=== PATIENT | female | born 1950 | race Two or more races ===

== ENCOUNTER → 2022-05-06 | Outpatient (CLI) | payer OTHER, MEDICAID ==
[~2022-05-06] MED LIST: ALBUTEROL SULF 2.5 MG/0.5ML(0.5%) NEB SOLN ONE
== END | disposition home or self-care (01) ==
LOC: RT 08:49
PROVIDERS: ATTEND Internal Medicine Pulmonary Disease
DX: R06.02 Shortness of breath (principal); R06.00 Dyspnea, unspecified; R05.9 Cough, unspecified; Z87.891 Personal history of nicotine dependence
CPT/HCPCS: 94060; 94727; 94729

== ENCOUNTER 2024-12-06 21:51 | Inpatient (IN) | payer BC, MEDICAID ==
[~2024-12-06] VITALS: Ht 160 cm; Wt 97.0 kg
--- NOTE | 2024-12-06 22:39 | ED.PDOC ---
History of Present Illness HPI Comments 74 y/o obese F, with a history of CHF, DM, HLD, and HTN, is BIBA for c/o anxiety and medication refill-inquiry, today. Patient is a poor historian and endorses on calling EMS under advice of phone-health nurse for worsening anxiety surrounding her inability to obtain any refill for her prescription medications for the past couple of months. She comments on, initially, running out of said medications when she was discharge when plans for knee surgery fell through at a facility at [place], [place] in September 2024, with multiple reported failed attempts to contact her PCP since then to obtain a refill. Patient states on most recent fail attempt being a recent hospital admission at [facility] after being found with a "low heart rate" then. She reports on being discharged but never her medications forwarded to her preferred pharmacy. Patient denies any current shortness of breath, chest pain, suicidal or homicidal ideations, auditory or visual hallucinations, or other associated symptoms at this time. Chief Complaint: Anxiety Time Seen by MD: 22:20 Reviewed Notes: Nurses Notes, Railroad Car Checker Notes, Medications, Allergies Allergies: Coded Allergies: Codeine (Verified Allergy, Unknown, 12/06/24) Penicillins (Verified Allergy, Unknown, 12/06/24) Information Source: Patient, Emergency Med Personnel Mode of Arrival: EMS Severity: Moderate Timing: Hours Duration: Since onset Prehospital treatment: 12 Lead EKG, Cover Mat Machine Operator Past Medical History PAST MEDICAL HISTORY: CHF, DM, High Lipids, HTN Surgical History: Denies all surgeries EYELET CUTTER History: Denies all EYELET CUTTER Hx Family History Family History: Unknown Social History Smoker: Non-Smoker Alcohol: Denies ETOH Use Drugs: Denies Drug Use Lives In: Home All Other Systems: Reviewed and Negative (Comprehensive systems review obtained and negative except for what is stated in the HPI.) Physical Exam General Appearance: No Apparent Distress, Obese HEENT: Normal ENT Inspection, Pharynx Normal, TMs Normal Neck: Full Range of Motion, Non-Tender, Normal, Normal Inspection Respiratory: Chest Non-Tender, Lungs Clear, No Accessory Muscle Use, No Respiratory Distress, Normal Breath Sounds Cardiovascular: No Edema, No JVD, No Murmur, No Gallop, Normal Peripheral Pulses, Regular Rate/Rhythm Breast Exam: Deferred Gastrointestinal: No Organomegaly, Non Tender, No Pulsatile Mass, Normal Bowel Sounds, Soft Genitalia: Deferred Pelvic: Deferred Rectal: Deferred Extremities: No calf tenderness, Normal capillary refill, Normal inspection, Normal range of motion, Non-tender, No pedal edema Musculoskeletal : Apperance: Normal Neurologic: Alert, presales engineer II-XII nml as Tested, No Motor Deficits, Normal Affect, Normal Mood, No Sensory Deficits Cerebellar Function: Normal Reflexes: Normal Skin: Dry, Normal Color, Warm Lymphatic: No Adenopathy Was a procedure done? Was a procedure done?: No Differential Dx Considerations may include: anxiety, ACS, electrolyte abnormality, viral syndrome, medication reaction X-Ray, Labs, Meds, VS Vital Signs Date Time Temp Pulse Resp B/P (MAP) Pulse Ox O2 Delivery O2 Flow Rate FiO2 12/06/24 22:05 97.9 80 18 148/76 (100) 95 97.9 Lab Test 12/06/24 22:33 Range/Units White Blood Count 4.8 4.4-10.8 10^3/uL Red Blood Count 4.21 4.0-5.20 10^6/uL Hemoglobin 12.4 12.2-16.2 g/dL Hematocrit 37.3 36.0-46.0 % Mean Corpuscular Volume 88.7 80.0-100.0 fL Mean Corpuscular Hemoglobin 29.5 28.0-32.0 pg Mean Corpuscular Hemoglobin Concent 33.3 32.0-36.0 g/dL Red Cell Distribution Width 16.9 H 11.8-14.3 % Platelet Count 188 140-450 10^3/uL Mean Platelet Volume 7.7 6.9-10.8 fL Neutrophils (%) (Auto) 45.5 37.0-80.0 % Lymphocytes (%) (Auto) 43.3 10.0-50.0 % Monocytes (%) (Auto) 7.2 0.0-12.0 % Eosinophils (%) (Auto) 3.1 0.0-7.0 % Basophils (%) (Auto) 0.9 0.0-2.0 % Neutrophils # (Auto) 2.2 1.6-8.6 10 ^3/uL Lymphocytes # (Auto) 2.1 0.4-5.4 10 ^3/uL Monocytes # (Auto) 0.3 0-1.3 10 ^3/uL Eosinophils # (Auto) 0.1 0-0.8 10 ^3/uL Basophils # (Auto) 0 0-0.2 10 ^3/uL Nucleated Red Blood Cells 0.1 % Sodium Level 141 136-145 mmol/L Potassium Level 3.7 3.5-5.1 mmol/L Chloride Level 107 98-107 mmol/L Carbon Dioxide Level 26 20-31 mmol/L Anion Gap 8 5-15 Blood Urea Nitrogen 15 9-23 mg/dL Creatinine 1.06 H 0.550-1.02 mg/dL Glomerular Filtration Rate Calc 55 >90 mL/min BUN/Creatinine Ratio 14.2 10.0-20.0 Serum Glucose 145 H 74-106 mg/dL Calcium Level 9.8 8.7-10.4 mg/dL Troponin I High Sensitivity 122 *H </=34 ng/L Time of 1ST Reevaluation: 22:50 Reevaluation 1ST: Unchanged Patient Education/Counseling: Diagnosis, Treatment Family Education/Counseling: No Family Present Departure 1 Departure Time of Disposition: 04:38 (Patient with a vague complaints and elevated troponin. Patient is noncompliant with any of her medications. Blood pressure is out of control. We will admit patient for further workup and expert consultation) Impression: Primary Impression: Generalized weakness Additional Impressions: Hypertension Qualified Codes: I10 - Essential (primary) hypertension Elevated troponin Disposition: ADMITTED INPATIENT Admit to: Med Surg Condition: Serious Critical Care Note Critical Care Time?: No Stability Stability form required: No Heart Score Heart Score: Heart Score Response (Comments) Value History Slightly Suspicious 0 EKG Normal 0 Age >65 2 Risk Factors >3 or Hx ASHD 2 Troponin >3 x's Normal limit 2 Total 6 I personally scribed for FELA VANCE MD ([email or web address]) on 12/06/24 at 22:39. Electronically submitted by Akhil Mcdaniel ([email or web address]). FELA VANCE MD Dec 06, 2024 22:39
[2024-12-06 22:44] LABS: Basophils # (auto) 0 10 ^3/uL (0-0.2); Basophils % (auto) 0.9 % (0.0-2.0); Eosinophils # (auto) 0.1 10 ^3/uL (0-0.8); Eosinophils % (auto) 3.1 % (0.0-7.0); Hematocrit 37.3 % (36.0-46.0); Hemoglobin 12.4 g/dL (12.2-16.2); Lymphocytes # (auto) 2.1 10 ^3/uL (0.4-5.4); Lymphocytes % (auto) 43.3 % (10.0-50.0); Mean Corpuscular Hemoglobin 29.5 pg (28.0-32.0); Mean Corpuscular Hgb Conc. 33.3 g/dL (32.0-36.0); Mean Corpuscular Volume 88.7 fL (80.0-100.0); Monocytes # (auto) 0.3 10 ^3/uL (0-1.3); Monocytes % (auto) 7.2 % (0.0-12.0); Neutrophils # (auto) 2.2 10 ^3/uL (1.6-8.6); Neutrophils % (auto) 45.5 % (37.0-80.0); Nucleated Red Blood Cells % 0.1 %; Platelet Count (auto) 188 10^3/uL (140-450); Red Blood Cells 4.21 10^6/uL (4.0-5.20); Red Cell Distribution Width 16.9 % (11.8-14.3); White Blood Cell 4.8 10^3/uL (4.4-10.8)
[2024-12-06 22:53] LABS: Potassium 3.7 mmol/L (3.5-5.1); Sodium 141 mmol/L (136-145)
[2024-12-06 22:54] LABS: Anion Gap 8 (5-15); Calcium 9.8 mg/dL (8.7-10.4); Carbon Dioxide 26 mmol/L (20-31)
[2024-12-06 22:59] LABS: BUN/Creatinine Ratio 14.2 (10.0-20.0); Blood Urea Nitrogen 15 mg/dL (9-23)
[2024-12-06 23:00] LABS: Chloride 107 mmol/L (98-107); Glucose 145 mg/dL (74-106)
[2024-12-07] MEDS ORDERED: DEXTROSE (50%) 50ML SYRG IV PRN (05:00)
[2024-12-07] MEDS ORDERED: MORPHINE SULFATE INJ 2 MG/ml SYRG IV PRN (05:00)
[2024-12-07] MEDS ORDERED: NITROGLYCERIN 0.4 MG SL TAB SL PRN (05:00)
[2024-12-07] MEDS ORDERED: ONDANSETRON HCL 4 MG/2 ML VIAL IV PRN (05:00)
--- NOTE | 2024-12-07 05:09 | DVHHP2 ---
History of Present Illness Reason for Visit: Medication refill History of Present Illness 74-year-old female presents for evaluation of generalized weakness and for medication refill. Patient initially presented with complaints of being out of her medications for over a month. She states she has not been able to get an refilled by her primary care provider. She reports generalized weakness and occasional dizziness. On arrival patient was noted to have a mildly elevated troponin level and blood pressure in the 190s. She denies headache or blurred vision. No chest pain or shortness for breath. Denies any other acute complaints at the moment. Past Medical History Hypertension, dyslipidemia, thyroid, CHF Past Surgical History Denies Family History Noncontributory Smoke: No ALCOHOL: none Drugs: None Lives: with Family Review of Systems Review of Systems Review of systems are currently negative otherwise addressed in HPI. Allergies: Coded Allergies: Codeine (Verified Allergy, Unknown, 12/06/24) Penicillins (Verified Allergy, Unknown, 12/06/24) Exam Vital Signs Vital Signs Date Time Temp Pulse Resp B/P (MAP) Pulse Ox O2 Delivery O2 Flow Rate FiO2 12/07/24 04:46 98.1 61 12 189/125 (146) 97 98.1 Exam Gen: 74-year-old female in no apparent distress. Skin: Warm, dry, normal color and texture, no rash. HEENT: Normocephalic atraumatic, mucous membranes moist and pink. Neck: Cervical and supraclavicular nodes normal without enlargement, trachea is midline, thyroid gland is normal without masses. Pulmonary: Clear to auscultation and percussion bilaterally. Cardiac: Regular rate and rhythm. No murmur Abdomen: Soft, nontender, nondistended, bowel sounds present all 4 quadrants, no guarding, no rigidity, no organomegaly. Extremities: No cyanosis, clubbing, no edema Neuro: Cranial nerves II through XII grossly intact, normal affect and speech, no focal motor deficits. Labs/Xrays Labs Test 12/06/24 22:33 Range/Units White Blood Count 4.8 4.4-10.8 10^3/uL Red Blood Count 4.21 4.0-5.20 10^6/uL Hemoglobin 12.4 12.2-16.2 g/dL Hematocrit 37.3 36.0-46.0 % Mean Corpuscular Volume 88.7 80.0-100.0 fL Mean Corpuscular Hemoglobin 29.5 28.0-32.0 pg Mean Corpuscular Hemoglobin Concent 33.3 32.0-36.0 g/dL Red Cell Distribution Width 16.9 H 11.8-14.3 % Platelet Count 188 140-450 10^3/uL Mean Platelet Volume 7.7 6.9-10.8 fL Neutrophils (%) (Auto) 45.5 37.0-80.0 % Lymphocytes (%) (Auto) 43.3 10.0-50.0 % Monocytes (%) (Auto) 7.2 0.0-12.0 % Eosinophils (%) (Auto) 3.1 0.0-7.0 % Basophils (%) (Auto) 0.9 0.0-2.0 % Neutrophils # (Auto) 2.2 1.6-8.6 10 ^3/uL Lymphocytes # (Auto) 2.1 0.4-5.4 10 ^3/uL Monocytes # (Auto) 0.3 0-1.3 10 ^3/uL Eosinophils # (Auto) 0.1 0-0.8 10 ^3/uL Basophils # (Auto) 0 0-0.2 10 ^3/uL Nucleated Red Blood Cells 0.1 % Sodium Level 141 136-145 mmol/L Potassium Level 3.7 3.5-5.1 mmol/L Chloride Level 107 98-107 mmol/L Carbon Dioxide Level 26 20-31 mmol/L Anion Gap 8 5-15 Blood Urea Nitrogen 15 9-23 mg/dL Creatinine 1.06 H 0.550-1.02 mg/dL Glomerular Filtration Rate Calc 55 >90 mL/min BUN/Creatinine Ratio 14.2 10.0-20.0 Serum Glucose 145 H 74-106 mg/dL Calcium Level 9.8 8.7-10.4 mg/dL Troponin I High Sensitivity 122 *H </=34 ng/L Assessment/Plan Assessment/Plan Assessment Accelerated hypertension Elevated troponin, demand ischemia Diabetes mellitus Hypothyroid Plan Admit the patient to telemetry to the hospitalist Resume home medications Echocardiogram pending Continue treatment per orders. Plan discussed with: Patient My Orders Orders - LAMIN ANNE AGACNP Procedure Category Date Status Time Troponin-I Hs LAB 12/07/24 Logged 04:49 Troponin-I Hs LAB 12/07/24 Logged 05:49 Date of Service: Dec 07, 2024 Billing Provider: LAMIN ANNE Common Visit Codes: [id number] INP/OBS CARE (HIGH) LAMIN ANNE Dec 07, 2024 05:09
[2024-12-07 05:17] LABS: Urine Bacteria None Seen /hpf (None Seen)
--- NOTE | 2024-12-07 05:27 | DVH ---
EXAM: XR Chest, 1 View CLINICAL INDICATION: sob TECHNIQUE: Frontal view of the chest. COMPARISON: None FINDINGS: LUNGS AND PLEURAL SPACES: See below. HEART: Cardiomegaly with mild congestion. MEDIASTINUM: Unremarkable. Normal mediastinal contour. BONES/JOINTS: Unremarkable. No acute fracture. OTHER FINDINGS: . IMPRESSION: Cardiomegaly with mild congestion.
[2024-12-07 06:00] VITALS: PULSE 44; RESP 16; O2SAT 91
[2024-12-07] MEDS: LEVOTHYROXINE SODIUM 50 MCG TAB PO SCH (06:10)
[2024-12-07 06:35] LABS: Urine Blood 1+ /uL (Negative); Urine Clarity Clear (Clear); Urine Color Light-Yellow (Yellow); Urine Protein, UAD 1+ (Negative); Urine Squamous Epithelial Cell FEW /hpf (<5); Urine Urobilinogen Normal (Negative); Urine WBC < 1 /HPF (0-5); Urine pH 6.5 (5.0-9.0)
[2024-12-07] MEDS: InsuLIN REG 1unit/0.01ml Soln (100units/ml) SC SCH (06:42)
[2024-12-07] MEDS: ACCU-CHEK COMFORT CURVE STRIP VI SCH (06:42)
[2024-12-07 08:00] VITALS: PULSE 61; RESP 12; O2SAT 98
[2024-12-07] MEDS: ASPirin 81 mg TAB PO SCH (10:00)
[2024-12-07] MEDS: ENOXAPARIN SOD 40 MG/0.4 ML SYRINGE SC SCH (10:56)
[2024-12-07] MEDS: LOSARTAN POTASSIUM 50 MG TAB PO SCH (10:57)
[2024-12-07 16:19] VITALS: PULSE 69; RESP 18; O2SAT 97
[2024-12-07] MEDS ORDERED: FOLI-119 PO (16:48)
[2024-12-07 17:11] VITALS: BP 157/66; PULSE 69; RESP 18; TEMP 97.9; O2SAT 97
--- NOTE | 2024-12-07 18:18 | DVHSR ---
APPROVED REPORT EXAM: LIMITED Two-dimensional and M-mode echocardiogram with Doppler and color Doppler. Blood Pressure: 143/69 mmHg INDICATION EF RISK FACTORS Height: 5' 3", Weight: 190 DIMENSIONS LVDd4.5 (3.8-5.7cm)LA (2D)3.5 (1.9-4.0cm)Aortic Root3.8 (2.0-3.7cm) LVDs3.2 (2.5-4.0cm)LA (MM) (1.9-4.0cm)Aortic Cusp Exc1.5 (1.5-2.0cm) EF (%) 55.0 (55-70%)Rt. Atrium (1.9-4.0cm)Asc. Aorta cm IVSd1.3 (0.7-1.1cm)RV (D) (1.8-2.4cm) PWd1.4 (0.7-1.1cm) Mitral Valve MitralMitral Stenosis E wave0.60m/sMV Mean GR.mmHg A wave0.90m/sMV Peak GR.mmHg E/A ratio0.72D MVAcm2 Aortic Valve Aortic ValveAortic Stenosis V10.70m/Jessa Mean GR.4mmHg V21.40m/Jessa Peak GR.8mmHg LVOT Diameter2.3 (1.8-2.4cm)Doppler AVA2.08cm2 AI P 1/2 [id number] Other Information Quality : Technically LimitedRhythm : Technically limited study due to body habitus and patient position. Conclusion Technically good study. Sinus rhythm. Concentric LVH. Moderate hypertrophy noted. Left atrial enlargement. Mild aortic root enlargement. Voff-et-jxsrkxjw mitral annular calcification. Mild aortic sclerosis. Good excursion of the leaflet s without stenosis. Left ventricular function appears preserved. EF of about 50% however there does appear to be impaire d diastolic relaxation/diastolic dysfunction. There is mild aortic insufficiency and moderate tricuspid regurgitation. No pericardial effusion masses or vegetations discernible.
[2024-12-07 20:00] VITALS: PULSE 56; PULSE 83; RESP 19; O2SAT 96
--- NOTE | 2024-12-07 20:13 | DVHINCON2 ---
Date Seen: Dec 07, 2024 Referring Physician MD Forrest Reason for Consultation Bradycardia History of Present Illness This is a 74-year-old female who presented to the emergency room via EMS with a chief complaint of generalized weakness for one week. The patient complains of worsening generalized weakness stating she was found with a heart rate in the 30s bpm upon EMS arrival. Referral to the emergency room she underwent a 12 lead electrocardiogram revealing a sinus bradycardia rhythm with a associated first-degree AV block and nonspecific lateral changes with a HR of 44 bpm. Denies chest pain, SOB, dizziness, or syncopal events. Reports a recent admission to [facility] and no further information. Follows up in the outpatient setting with primary metal grinder Dr. Ramirez. Significant medical history includes unspecified congestive heart failure, hypertension, dyslipidemia, insulin-dependent diabetes mellitus, thyroid disease, peripheral neuropathy, and obesity. Past Medical History Past medical history reviewed. No other significant than mentioned above. Past Surgical History Tonsillectomy Nasal bridge Appendectomy BTL Hysterectomy Right carpal tunnel Spine/lumbar Right shoulder Family History: Cardiovascular disease G8 FATHER, Diabetes mellitus G8 MOTHER, Hypertension G8 MOTHER, Family History Family history reviewed. Not significant for cardiovascular disease. Social History Denies the use of illicit drugs, alcohol, or tobacco use. Allergies: Coded Allergies: Codeine (Verified Allergy, Unknown, 12/06/24) Penicillins (Verified Allergy, Unknown, 12/06/24) Home Meds Reported Medications Folic Acid (Folic Acid) 1 Mg Tab, 1 TAB PO DAILY 12/07/24 Home Meds Home medications reviewed. Current Medications Current Medications Medications (Trade) Dose Ordered Sig/Haile Route PRN Reason Start Time Stop Time Status Last Admin Losartan Potassium (Cozaar Tablet) 50 mg DAILY PO 12/07/24 10:00 12/07/24 10:57 Levothyroxine Sodium (Synthroid Tablet) 50 mcg QAM@0600 PO 12/07/24 06:00 12/07/24 06:10 Hydralazine HCl (Apresoline Injection) 10 mg Q6HP PRN IV SBP>150 12/07/24 05:00 Aspirin 162 mg DAILY PO 12/07/24 10:00 12/07/24 10:00 Atorvastatin Calcium (Lipitor) 10 mg HS PO 12/07/24 22:00 Diagnostic Test (Pha) (Accu-Chek Comfort Curve T) 1 strip ACHS 12/07/24 07:00 12/07/24 17:36 Insulin Human Regular (InsuLIN R) ACHS SC 12/07/24 07:00 12/07/24 18:19 Dextrose 50 ml UD PRN IV Blood Sugar LESS THAN 60 12/07/24 05:00 Ondansetron HCl (Zofran) 4 mg Q4HP PRN IV NAUSEA / VOMITING 12/07/24 05:00 Enoxaparin Sodium (Lovenox) 40 mg DAILY SC 12/07/24 10:00 12/07/24 10:56 Acetaminophen (Tylenol Tablet) 650 mg Q6HP PRN PO PAIN SCALE 1-3 OR TEMP>100.4 12/07/24 05:00 Nitroglycerin (Ntrostat Sublingual) 0.4 mg Q5MINP PRN SL FOR CHEST PAIN 12/07/24 05:00 Morphine Sulfate 2 mg Q30M PRN IV FOR CHEST PAIN 12/07/24 05:00 Review of Systems Constitutional: Generalized weakness Ears, Nose, & Throat: No symptom reported Eyes: No symptom reported Neurological: No symptoms reported Pulmonary/Respiratory: No symptom reported Cardiovascular: No symptom reported Gastrointestinal: No symptom reported Genitourinary: No symptom reported Musculoskeletal: No symptom reported Skin: No symptom reported Psychiatric: No symptom reported Endocrine: No symptom reported Hemotologic/Lymphatic: No symptom reported Vital Signs Vital Signs Date Time Temp Pulse Resp B/P (MAP) Pulse Ox O2 Delivery O2 Flow Rate FiO2 12/07/24 17:11 97.9 69 18 157/66 (96) 97 97.9 12/07/24 16:19 Room Air* 0 21 Physical Exam General Appearance: Cooperative. Well developed. Obese. In no acute distress Head Exam: Normal inspection Neck Exam: Normal inspection. Non-tender. Normal alignment Pulmonary/Respiratory: Chest non-tender. Slightly diminished bilateral breath sounds Cardiovascular/Chest: Regular rate and rhythm. S1, S2. NSR. No murmurs. No JVD. Peripheral Pulses: 2+ Radial (R). 2+ Radial (L). 2+ Pedal (R). 2+ Pedal (L) Abdominal Exam: Normal bowel sounds. Soft. Nontender. No hepatospenomegaly. No masses Ankle Exam: Negative ankle edema Lower extremities: Negative lower extremity edema Neuro/Mental Status: A&O x4. Coherent Thoughts/Psych: Normal thought pattern. Appropriate mood and affect. Good judgement and insight Appearance: In no acute distress Skin Exam: Normal inspection. Normal color. Warm. Dry Labs/Diagnostic Data Labs Test 12/07/24 16:48 12/07/24 07:46 12/07/24 05:39 12/07/24 05:13 Range/Units POC Glucose 149 H 70-106 mg/dl Troponin I High Sensitivity 112 *H </=34 ng/L Total Triiodothyronine (TT3) 0.75 0.60-1.81 ng/mL Hemoglobin A1c 8.7 H <5.7 % A1C Thyroid Stimulating Hormone (TSH) > 150.00 H 0.55-4.78 uIU/mL Urine Color Light-yellow Yellow Urine Clarity Clear Clear Urine pH 6.5 5.0-9.0 Urine Specific [place] 1.020 1.001-1.035 Urine Protein 1+ H Negative Urine Ketones Negative Negative Urine Blood 1+ H Negative /uL Urine Nitrite Negative Negative Urine Bilirubin Negative Negative Urine Urobilinogen Normal Negative mg/dL Urine Leukocyte Esterase Negative Negative /uL Urine RBC None seen 0 - 4 /hpf Urine Microscopic WBC < 1 0-5 /HPF Urine Squamous Epithelial Cells Few <5 /hpf Urine Bacteria None seen None Seen /hpf Urine Glucose Normal Normal mg/dL Test 12/06/24 22:33 Range/Units White Blood Count 4.8 4.4-10.8 10^3/uL Red Blood Count 4.21 4.0-5.20 10^6/uL Hemoglobin 12.4 12.2-16.2 g/dL Hematocrit 37.3 36.0-46.0 % Mean Corpuscular Volume 88.7 80.0-100.0 fL Mean Corpuscular Hemoglobin 29.5 28.0-32.0 pg Mean Corpuscular Hemoglobin Concent 33.3 32.0-36.0 g/dL Red Cell Distribution Width 16.9 H 11.8-14.3 % Platelet Count 188 140-450 10^3/uL Mean Platelet Volume 7.7 6.9-10.8 fL Neutrophils (%) (Auto) 45.5 37.0-80.0 % Lymphocytes (%) (Auto) 43.3 10.0-50.0 % Monocytes (%) (Auto) 7.2 0.0-12.0 % Eosinophils (%) (Auto) 3.1 0.0-7.0 % Basophils (%) (Auto) 0.9 0.0-2.0 % Neutrophils # (Auto) 2.2 1.6-8.6 10 ^3/uL Lymphocytes # (Auto) 2.1 0.4-5.4 10 ^3/uL Monocytes # (Auto) 0.3 0-1.3 10 ^3/uL Eosinophils # (Auto) 0.1 0-0.8 10 ^3/uL Basophils # (Auto) 0 0-0.2 10 ^3/uL Nucleated Red Blood Cells 0.1 % Sodium Level 141 136-145 mmol/L Potassium Level 3.7 3.5-5.1 mmol/L Chloride Level 107 98-107 mmol/L Carbon Dioxide Level 26 20-31 mmol/L Anion Gap 8 5-15 Blood Urea Nitrogen 15 9-23 mg/dL Creatinine 1.06 H 0.550-1.02 mg/dL Glomerular Filtration Rate Calc 55 >90 mL/min BUN/Creatinine Ratio 14.2 10.0-20.0 Serum Glucose 145 H 74-106 mg/dL Calcium Level 9.8 8.7-10.4 mg/dL Assessment Symptomatic bradycardia in the setting of severe hypothyroidism Acute on chronic decompensated HFpEF Rule out pituitary tumor Hypertension Dyslipidemia Insulin-dependent diabetes mellitus Peripheral neuropathy Obesity Plan/Recommendation (Dr. Monroe) Symptomatic bradycardia most likely secondary to severe hypothyroidism. Initiate levothyroxine IV and obtain a head CT with contrast to rule out a pituitary tumor. Consider a neurological evaluation with abnormal head CT findings. A transthoracic echocardiogram revealed an EF of 50% with associated impaired diastolic relaxation/dysfunction. Avoid AV pina blocking agents. Thyroid work-up per primary care team. In the setting of bradycardia improv ement once TSH levels have normalized, there is no further cardiac work-up indicated. Not a candidate for invasive cardiac procedures including a permanent pacemaker. Kindly call if bradycardia persists. Thank you for allowing us to participate in this patient's care. Please call if you have any questions or concerns. This medical document was created using an electronic medical record system with voice recognition software and computerized dictation system. Although this document has been carefully reviewed, there might still be some phonetic and typographical errors. Occasional wrong-word or ``sound-alike substitutions may have occurred due to the inherent limitations of voice recognition software. These areas are purely typographical due to imperfections of the software programs and do not reflect any compromise in the patient's medical care. Please read the chart carefully and recognize, using context, where these substitutions have occurred. Plan discussed with: Patient, Other NYHA Physical activity limitations: NA Date of Service: Dec 08, 2024 Billing Provider: JOSE R BAZZI Cardiology Common Codes: [id number] INP/OBS CARE (High) JOSE R BAZZI Dec 07, 2024 20:13
[2024-12-07 21:00] VITALS: BP 121/69; PULSE 56; RESP 19; TEMP 97.8; O2SAT 96
[2024-12-07] MEDS: ATORVASTATIN 20 MG TAB PO SCH (21:45)
[2024-12-07] MEDS: ACETAMINOPHEN 325 MG TAB PO PRN (21:47)
[2024-12-08] VITALS (8 sets, daily range): BP systolic 110–153; BP diastolic 76–84; PULSE 46–99; RESP 17–20; TEMP 97.8–98.6; O2SAT 94–97
[2024-12-08 06:04] LABS: Anion Gap 8 (5-15); Carbon Dioxide 28 mmol/L (20-31); Chloride 105 mmol/L (98-107); Potassium 3.8 mmol/L (3.5-5.1); Sodium 141 mmol/L (136-145)
[2024-12-08 06:05] LABS: Calcium 9.5 mg/dL (8.7-10.4)
[2024-12-08 06:10] LABS: BUN/Creatinine Ratio 13.9 (10.0-20.0); Blood Urea Nitrogen 14 mg/dL (9-23)
[2024-12-08 06:17] LABS: Glucose 117 mg/dL (74-106)
[2024-12-08] MEDS: hydrALAZINE HCL 20 MG/ML VL IV PRN (08:51)
[2024-12-08] MEDS: LEVOTHYROXINE SODIUM 100 MCG/5 ML INJ IV SCH (10:22)
[2024-12-08] MEDS: FUROSEMIDE 20 MG/2 ML VIAL IV SCH (12:01)
[2024-12-08] MEDS ORDERED: IOHEXOL 300 MG/ML 100ML BOTTLE IJ ONE (12:18)
--- NOTE | 2024-12-08 13:47 | DVH ---
CT HEAD WITH CONTRAST CLINICAL HISTORY: Rule out pituitary tumor TECHNIQUE: Multiple contiguous axial images of the head with and without contrast. Coronal and sagittal reforma ts. 100 cc of Omnipaque omnipaque 350 contrast was injected intravenously.Radiation Dose Information: CT Dose: CTDI volume is 54 mGy. Dose-length product is 874 mGy*cm Comparison: None FINDINGS: Evaluation for pituitary lesion is limited on CT. The pituitary gland is not enlarged. There is a mi dline pituitary stalk. There is no evidence of a suprasellar lesion. There is no evidence of intracranial hemorrhage, mass, mass effect or midline shift. There is no hyd rocephalus or extra-axial fluid collection. There is no pathologic focus of enhancement. The urbina-wh ite matter differentiation appears maintained. The visualized paranasal sinuses and mastoid air cells are clear. The osseous structures appear unrem arkable. IMPRESSION: 1. There is no acute intracranial process. 2. Evaluation for pituitary lesion is limited on CT. Further evaluation with dedicated MRI brain and pituitary study with contrast is recommended. HS:Y
[2024-12-08] MEDS ORDERED: GABA-339 PO (14:38)
--- NOTE | 2024-12-08 14:46 | ECG ---
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
[2024-12-08] MEDS: GABAPENTIN 400 MG CAP PO ONE (15:48)
[2024-12-08] MEDS: ALPRAZolam 0.5 MG TAB PO PRN (15:49)
--- NOTE | 2024-12-08 16:01 | DVHPN2 ---
Subjective I am assuming the care of the patient was from today onwards who was under the care of the hospitalist team. Patient was currently complaining of severe anxiety. 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 Medications Current Medications Medications Dose Ordered Sig/Haile Route Start Time Stop Time Status Last Admin Dose Admin Losartan Potassium 50 mg DAILY PO 12/07/24 10:00 12/08/24 10:22 50 MG Hydralazine HCl 10 mg Q6HP PRN IV 12/07/24 05:00 12/08/24 08:51 10 MG Aspirin 162 mg DAILY PO 12/07/24 10:00 12/08/24 10:21 162 MG Atorvastatin Calcium 10 mg HS PO 12/07/24 22:00 12/07/24 21:45 10 MG Diagnostic Test (Pha) 1 strip ACHS 12/07/24 07:00 12/08/24 11:30 1 STRIP Insulin Human Regular ACHS SC 12/07/24 07:00 12/08/24 12:58 3 UNITS Dextrose 50 ml UD PRN IV 12/07/24 05:00 Ondansetron HCl 4 mg Q4HP PRN IV 12/07/24 05:00 Enoxaparin Sodium 40 mg DAILY SC 12/07/24 10:00 12/08/24 10:22 40 MG Acetaminophen 650 mg Q6HP PRN PO 12/07/24 05:00 12/07/24 21:47 650 MG Nitroglycerin 0.4 mg Q5MINP PRN SL 12/07/24 05:00 Morphine Sulfate 2 mg Q30M PRN IV 12/07/24 05:00 Levothyroxine Sodium 100 mcg DAILY IV 12/08/24 10:00 12/08/24 10:22 100 MCG Furosemide 20 mg DAILY IV 12/08/24 10:00 12/08/24 12:01 20 MG Gabapentin 800 mg TID PO 12/08/24 22:00 Alprazolam 0.5 mg BID PRN PO 12/08/24 14:45 12/08/24 15:49 0.5 MG Hydroxyzine HCl 10 mg Q6HP PRN PO 12/08/24 16:00 UNV Laboratory Results Laboratory Tests 12/06/24 22:33 12/08/24 05:00 Chemistry Test 12/08/24 05:00 Calcium Level 9.5 mg/dL (8.7-10.4) Urinalysis Test 12/07/24 05:13 Urine Color Light-yellow (Yellow) Urine Clarity Clear (Clear) Urine pH 6.5 (5.0-9.0) Urine Specific [place] 1.020 (1.001-1.035) Urine Protein 1+ (Negative) H Urine Ketones Negative (Negative) Urine Blood 1+ /uL (Negative) H Urine Nitrite Negative (Negative) Urine Bilirubin Negative (Negative) Urine Urobilinogen Normal mg/dL (Negative) Urine Leukocyte Esterase Negative /uL (Negative) Urine RBC None seen /hpf (0 - 4) Urine Microscopic WBC < 1 /HPF (0-5) Urine Squamous Epithelial Cells Few /hpf (<5) Urine Bacteria None seen /hpf (None Seen) Urine Glucose Normal mg/dL (Normal) Microbiology Microbiology Date/Time Source Procedure Growth Status 12/07/24 17:25 Nose MRSA Screen - Final Complete Assessment/Plan Assessment/Plan 74-year-old female with a known history of hypertension, diabetes mellitus type 2, severe anxiety disorder initially presented to the hospital with generalized weakness found to have 1. Symptomatic bradycardia 2. Severe hypothyroidism 3. Acute on chronic congestive heart failure exacerbation with systolic dysfunction 4. Hypotension 5. Dyslipidemia 6. Diabetes mellitus type [address] head with the pituitary stalk, MRI brain ordered 8. Severe anxiety disorder -patient was stated that she takes hydroxyzine for severe anxiety at home. Order MRI brain-, neurology consultation Continue IV levothyroxine, follow up repeat TSH free T4. -endocrinology consultation. Plan discussed with: Patient My Orders Orders - ROBIN WADE MD Procedure Category Date Status Time Gabapentin Capsule PHA 12/08/24 In Process (Neurontin Capsule) 22:00 Alprazolam Tablet PHA 12/08/24 In Process (Xanax Tablet) 14:45 Thyroid Stimulating LAB 12/09/24 Verified Hormone 04:00 Free T3 LAB 12/09/24 Verified 04:00 Free T4 (Free LAB 12/09/24 Verified Thyroxine) 04:00 Hydroxyzine Oral PHA 12/08/24 Logged (Vistaril Oral) 16:00 Brain Head Wo Contrast MRI 12/08/24 Logged 15:52 * Neurology Consult CONS 12/08/24 Verified 15:57 Date of Service: Dec 08, 2024 Billing Provider: ROBIN WADE MD Common Visit Codes: NOT BILLABLE ROBIN WADE MD Dec 08, 2024 16:01
[2024-12-08] MEDS: GABAPENTIN 400 MG CAP PO SCH (21:31)
[2024-12-09] VITALS (8 sets, daily range): BP systolic 94–140; BP diastolic 59–82; PULSE 60–99; RESP 16–20; TEMP 97.9–99; O2SAT 92–98
[2024-12-09 06:38] LABS: Free T3 1.48 pg/mL (2.3-4.2)
[2024-12-09 06:39] LABS: Free T4 (Free Thyroxine) 0.71 ng/dL (0.89-1.76)
--- NOTE | 2024-12-09 09:30 | DVH ---
EXAM: MRI BRAIN HEAD WO CONTRAST HISTORY: Pituitary stalk COMPARISON: CT scan dated 12/08/2024 TECHNIQUE: MRI was performed utilizing multiple appropriate imaging planes and pulse sequences. FINDINGS: SUPRATENTORIAL REGION: Scattered subcentimeter foci of acute ischemia noted in the bilateral frontop arietal lobes. No large acute territorial ischemia. No intracranial hemorrhage. Scattered ill-define d FLAIR hyperintensities are noted within the bilateral periventricular region, croft radiata and [place] bcortical white matter. POSTERIOR FOSSA: Subcentimeter focus of acute ischemia in the right side of the vermis. BRAINSTEM: Unremarkable. SELLAR/SUPRASELLAR REGION: Unremarkable. VENTRICLES, CISTERNS, SULCI: Age-appropriate. ORBITS: Unremarkable. PARANASAL SINUSES: Unremarkable. MASTOID AIR CELLS: Unremarkable. VASCULATURE: Unremarkable. BONES/ SOFT TISSUES: Unremarkable. OTHER: None. IMPRESSION: 1. Scattered subcentimeter foci of acute ischemia in the bilateral frontoparietal lobes and in the ri ght side of the vermis reflecting shower emboli from a central port source. Recommend further evalua tion with carotid Doppler, CT or MR angiogram of the head and neck and echocardiogram. 2. Moderate chronic microvascular ischemic changes. 3. The pituitary gland pituitary stalk are normal in morphology with no discrete lesion identified in this unenhanced study. Further evaluation for possible micro adenoma by dedicated dynamic pituitary MRI without and with IV contrast could be completed if clinically warranted. Findings discussed with MIREYA Love at 12/09/2024 09:23 AM, and acknowledged receipt and understanding of the findings. ..
--- NOTE | 2024-12-09 16:14 | DVHPN2 ---
Subjective Patient is feeling much better, MRI was done which shows evidence of subcentimeter embolic infarcts in the frontoparietal lobes as well as murmurs. MRA head and neck has been ordered, aspirin Plavix and statin has been started and Neurology has been consulted. 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 Medications Current Medications Medications Dose Ordered Sig/Haile Route Start Time Stop Time Status Last Admin Dose Admin Losartan Potassium 50 mg DAILY PO 12/07/24 10:00 12/09/24 09:51 50 MG Hydralazine HCl 10 mg Q6HP PRN IV 12/07/24 05:00 12/08/24 08:51 10 MG Aspirin 162 mg DAILY PO 12/07/24 10:00 12/09/24 09:50 162 MG Diagnostic Test (Pha) 1 strip ACHS 12/07/24 07:00 12/09/24 11:34 1 STRIP Insulin Human Regular ACHS SC 12/07/24 07:00 12/09/24 11:34 3 UNITS Dextrose 50 ml UD PRN IV 12/07/24 05:00 Ondansetron HCl 4 mg Q4HP PRN IV 12/07/24 05:00 Acetaminophen 650 mg Q6HP PRN PO 12/07/24 05:00 12/07/24 21:47 650 MG Nitroglycerin 0.4 mg Q5MINP PRN SL 12/07/24 05:00 Morphine Sulfate 2 mg Q30M PRN IV 12/07/24 05:00 Levothyroxine Sodium 100 mcg DAILY IV 12/08/24 10:00 12/09/24 09:49 100 MCG Furosemide 20 mg DAILY IV 12/08/24 10:00 12/09/24 09:49 20 MG Gabapentin 800 mg TID PO 12/08/24 22:00 12/09/24 13:55 800 MG Alprazolam 0.5 mg BID PRN PO 12/08/24 14:45 12/08/24 15:49 0.5 MG Hydroxyzine HCl 10 mg Q6HP PRN PO 12/08/24 16:00 Atorvastatin Calcium 40 mg HS PO 12/09/24 22:00 UNV Clopidogrel Bisulfate 75 mg DAILY PO 12/09/24 16:15 UNV Laboratory Results Laboratory Tests 12/06/24 22:33 12/08/24 05:00 HgA1c, TSH Test 12/09/24 05:11 Thyroid Stimulating Hormone (TSH) > 150.00 uIU/mL Urinalysis Test 12/07/24 05:13 Urine Color Light-yellow (Yellow) Urine Clarity Clear (Clear) Urine pH 6.5 (5.0-9.0) Urine Specific [place] 1.020 (1.001-1.035) Urine Protein 1+ (Negative) H Urine Ketones Negative (Negative) Urine Blood 1+ /uL (Negative) H Urine Nitrite Negative (Negative) Urine Bilirubin Negative (Negative) Urine Urobilinogen Normal mg/dL (Negative) Urine Leukocyte Esterase Negative /uL (Negative) Urine RBC None seen /hpf (0 - 4) Urine Microscopic WBC < 1 /HPF (0-5) Urine Squamous Epithelial Cells Few /hpf (<5) Urine Bacteria None seen /hpf (None Seen) Urine Glucose Normal mg/dL (Normal) Microbiology Microbiology Date/Time Source Procedure Growth Status 12/07/24 17:25 Nose MRSA Screen - Final Complete Assessment/Plan Assessment/Plan 74-year-old female with a known history of hypertension, diabetes mellitus type 2, severe anxiety disorder initially presented to the hospital with generalized weakness found to have 1. Symptomatic bradycardia secondary to severe hypothyroidism 2. Severe hypothyroidism currently on levothyroxine IV 3. Acute on chronic congestive heart failure exacerbation with systolic dysfunction currently compensated 4. Hypertension 5. Dyslipidemia 6. Diabetes mellitus type [address] head with the pituitary stalk, MRI brain did not show any pituitary pathology 8. Acute subcentimeter embolic CVA in why that is a frontoparietal lobes, no residual deficit -patient was stated that she takes hydroxyzine for severe anxiety at home. -aspirin, Plavix, statin, neurology consultations, 2D echo, cardiology consultation Continue IV levothyroxine, follow up repeat TSH free T4. -endocrinology consultation. -plan of care explained to the patient in detail who understand verbalized understanding and agreeable to plan. Plan discussed with: Patient, Other My Orders Orders - ROBIN WADE MD Procedure Category Date Status Time Mra Angio Head Brain MRI 12/09/24 Logged 16:05 Mra Angio Of Neck MRI 12/09/24 Logged 16:05 * Neurology Consult CONS 12/09/24 Transmitted 16:05 Atorvastatin (Lipitor) PHA 12/09/24 Logged 22:00 Clopidogrel Bisulfate PHA 12/09/24 Logged (Plavix) 16:15 Echo 2d Mode Cardiac US 12/09/24 Logged DOP 16:09 Date of Service: Dec 09, 2024 Billing Provider: ROBIN WADE MD Common Visit Codes: NOT BILLABLE ROBIN WADE MD Dec 09, 2024 16:14
[2024-12-09] MEDS: CLOPIDOGREL BISULFATE 75 MG TAB PO SCH (17:10)
[2024-12-09] MEDS: ATORVASTATIN 20 MG TAB PO SCH (21:54)
[2024-12-10] VITALS (8 sets, daily range): BP systolic 71–118; BP diastolic 40–78; PULSE 56–87; RESP 16–18; TEMP 97.3–98.5; O2SAT 92–97
--- NOTE | 2024-12-10 11:32 | ECG ---
[facility] Test Date: 2024-12-08 Test Time: 16:30:49 Pat Name: TRISTON FARRELL Department: Room: [facility]6T A Gender: F Hat Sizer: KEY : 1950 Requested By: ROBIN WADE Order Number: [id number] Reading MD: Measurements Intervals [place] Rate: 71 P: -19 MT: 238 QRS: -41 QRSD: 86 T: 89 QT: 422 QTc: 459 Interpretive Statements Sinus rhythm Prolonged MT interval Left anterior fascicular block Consider left ventricular hypertrophy Anterior Q waves, possibly due to LVH Please click the below link to view image of tracing.
--- NOTE | 2024-12-10 13:13 | DVH ---
PROCEDURE: MRI MRA ANGIO OF NECK INDICATION: Acute embolic CVA 12/10/2024 08:50 AM COMPARISON: None TECHNIQUE: MRA head without intravenous contrast. MRA neck without intravenous contrast. 3D image postprocessing was performed on a dedicated workstation and images were used for interpretat ion and reporting. FINDINGS: MRA head: There is preserved enhancement within the bilateral distal internal carotid arteries. There is preserved enhancement within the anterior and middle cerebral arteries. There is preserved enhancement within the vertebral arteries, basilar artery, cerebellar arteries and posterior cerebral arteries. There is no evidence of hemodynamically significant intracranial stenosis, proximal occlusion or aneu rysm. No abnormal venous signal is seen. MRA neck: The visualized thoracic aortic arch and proximal great vessels are unremarkable. There is no evidence of hemodynamically significant stenosis involving the bilateral common and inter nal carotid arteries. The cervical vertebral arteries are patent. There is no evidence of dissection. IMPRESSION: 1. No evidence of hemodynamically significant intracranial stenosis, proximal occlusion or aneurysm. 2. No evidence of hemodynamically significant cervical stenosis or dissection.
--- NOTE | 2024-12-10 16:09 | DVHPN2 ---
Subjective Patient is feeling much better, MRI was done which shows evidence of subcentimeter embolic infarcts in the frontoparietal lobes as well as murmurs. MRA head and neck has been ordered, aspirin Plavix and statin has been started and Neurology has been consulted. 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 Medications Current Medications Medications Dose Ordered Sig/Haile Route Start Time Stop Time Status Last Admin Dose Admin Losartan Potassium 50 mg DAILY PO 12/07/24 10:00 12/09/24 09:51 50 MG Hydralazine HCl 10 mg Q6HP PRN IV 12/07/24 05:00 12/08/24 08:51 10 MG Aspirin 162 mg DAILY PO 12/07/24 10:00 12/10/24 10:12 162 MG Diagnostic Test (Pha) 1 strip ACHS 12/07/24 07:00 12/10/24 11:30 1 STRIP Insulin Human Regular ACHS SC 12/07/24 07:00 12/09/24 21:50 4 UNITS Dextrose 50 ml UD PRN IV 12/07/24 05:00 Ondansetron HCl 4 mg Q4HP PRN IV 12/07/24 05:00 Acetaminophen 650 mg Q6HP PRN PO 12/07/24 05:00 12/07/24 21:47 650 MG Nitroglycerin 0.4 mg Q5MINP PRN SL 12/07/24 05:00 Morphine Sulfate 2 mg Q30M PRN IV 12/07/24 05:00 Furosemide 20 mg DAILY IV 12/08/24 10:00 12/09/24 09:49 20 MG Gabapentin 800 mg TID PO 12/08/24 22:00 12/10/24 13:13 800 MG Alprazolam 0.5 mg BID PRN PO 12/08/24 14:45 12/10/24 15:35 0.5 MG Hydroxyzine HCl 10 mg Q6HP PRN PO 12/08/24 16:00 Atorvastatin Calcium 40 mg HS PO 12/09/24 22:00 12/09/24 21:54 40 MG Clopidogrel Bisulfate 75 mg DAILY PO 12/09/24 16:15 12/10/24 10:11 75 MG Levothyroxine Sodium 150 mcg QAM@0600 PO 12/11/24 06:00 Laboratory Results Laboratory Tests 12/06/24 22:33 12/08/24 05:00 Urinalysis Test 12/07/24 05:13 Urine Color Light-yellow (Yellow) Urine Clarity Clear (Clear) Urine pH 6.5 (5.0-9.0) Urine Specific [place] 1.020 (1.001-1.035) Urine Protein 1+ (Negative) H Urine Ketones Negative (Negative) Urine Blood 1+ /uL (Negative) H Urine Nitrite Negative (Negative) Urine Bilirubin Negative (Negative) Urine Urobilinogen Normal mg/dL (Negative) Urine Leukocyte Esterase Negative /uL (Negative) Urine RBC None seen /hpf (0 - 4) Urine Microscopic WBC < 1 /HPF (0-5) Urine Squamous Epithelial Cells Few /hpf (<5) Urine Bacteria None seen /hpf (None Seen) Urine Glucose Normal mg/dL (Normal) Microbiology Microbiology Date/Time Source Procedure Growth Status 12/07/24 17:25 Nose MRSA Screen - Final Complete Assessment/Plan Assessment/Plan 74-year-old female with a known history of hypertension, diabetes mellitus type 2, severe anxiety disorder initially presented to the hospital with generalized weakness found to have 1. Symptomatic bradycardia secondary to severe hypothyroidism 2. Severe hypothyroidism currently on levothyroxine IV 3. Acute on chronic congestive heart failure exacerbation with systolic dysfunction currently compensated 4. Hypertension 5. Dyslipidemia 6. Diabetes mellitus type [address] head with the pituitary stalk, MRI brain did not show any pituitary pathology 8. Acute subcentimeter embolic CVA in why that is a frontoparietal lobes, no residual deficit -patient was stated that she takes hydroxyzine for severe anxiety at home. -aspirin, Plavix, statin, neurology consultations, 2D echo, cardiology consultation Continue IV levothyroxine, follow up repeat TSH free T4. -endocrinology consultation. -plan of care explained to the patient in detail who understand verbalized understanding and agreeable to plan. Plan discussed with: Patient My Orders Orders - ROBIN WADE MD Procedure Category Date Status Time Atorvastatin (Lipitor) PHA 12/09/24 In Process 22:00 Clopidogrel Bisulfate PHA 12/09/24 In Process (Plavix) 16:15 Echo 2d Mode Cardiac US 12/09/24 Logged DOP 16:09 Thyroid Stimulating LAB 12/10/24 Logged Hormone 15:07 Free T4 (Free LAB 12/10/24 Logged Thyroxine) 15:07 Date of Service: Dec 10, 2024 Billing Provider: ROBIN WADE MD Common Visit Codes: NOT BILLABLE ROBIN WADE MD Dec 10, 2024 16:09
--- NOTE | 2024-12-10 20:26 | DVHINCON2 ---
Date of service: Dec 10, 2024 History of Present Illness 74yo F w/ hx of hypothyroidism, HTN, type II DM who presented to the hospital on 12/07 with 1 week of generalized weakness. Patient has a reported > 20yr hx of hypothyroidism maintained on an unspecified dose of levothyroxine at home. Patient states she is usually very particular wi th taking her once daily tablet however she notes she did run out of medication recently and so has been unable to take it for about 2 months. Since then she has experienced generalized fatigue. Approximately 2 weeks ago patient reports presenting to [facility] for similar complaint during which time she was reportedly given her IV synthroid however she states she was not discharged on any levothyroxine and so was not able to continue post-discharge. She developed intractable weakness in the following week prior to admission. UPon presentation patient was found t obe bradycardic. EKG showed 1st degree AV block HR 44 bpm. TSH > 150, FT4 0.7. Family History: Cardiovascular disease G8 FATHER, Diabetes mellitus G8 MOTHER, Hypertension G8 MOTHER, Allergies: Coded Allergies: Codeine (Verified Allergy, Unknown, 12/06/24) Penicillins (Verified Allergy, Unknown, 12/06/24) Home Meds Reported Medications Gabapentin (Gabapentin) 600 Mg Tab, 800 MG PO TID, #1 TAB 12/08/24 Folic Acid (Folic Acid) 1 Mg Tab, 1 TAB PO DAILY 12/07/24 Current Medications Current Medications Medications (Trade) Dose Ordered Sig/Haile Route PRN Reason Start Time Stop Time Status Last Admin Atorvastatin Calcium (Lipitor) 40 mg HS PO 12/09/24 22:00 12/09/24 21:54 Levothyroxine Sodium (Synthroid Tablet) 150 mcg QAM@0600 PO 12/11/24 06:00 Review of Systems Negative except that which is stated in HPI Vital Signs Vital Signs Date Time Temp Pulse Resp B/P (MAP) Pulse Ox O2 Delivery O2 Flow Rate FiO2 12/10/24 16:00 97.3 73 17 118/78 (91) 94 97.3 12/10/24 08:00 Room Air* 0 21 Physical Exam Gen - no acute distress HEENT - no thyromegaly CV - RRR, no m/r/g Resp - CTAB Abd - nontender Ext - no edema Labs/Diagnostic Data Labs Test 12/10/24 16:45 12/10/24 15:56 12/09/24 05:11 12/08/24 05:00 Range/Units POC Glucose 141 H 70-106 mg/dl Thyroid Stimulating Hormone (TSH) > 150.00 H 0.55-4.78 uIU/mL Free Triiodothyronine (T3) pg/mL 1.48 L 2.3-4.2 pg/mL Sodium Level 141 136-145 mmol/L Potassium Level 3.8 3.5-5.1 mmol/L Chloride Level 105 98-107 mmol/L Carbon Dioxide Level 28 20-31 mmol/L Anion Gap 8 5-15 Blood Urea Nitrogen 14 9-23 mg/dL Creatinine 1.01 0.550-1.02 mg/dL Glomerular Filtration Rate Calc 59 >90 mL/min BUN/Creatinine Ratio 13.9 10.0-20.0 Serum Glucose 117 H 74-106 mg/dL Calcium Level 9.5 8.7-10.4 mg/dL Test 12/07/24 07:46 12/07/24 05:39 12/07/24 05:13 12/06/24 22:33 Range/Units Troponin I High Sensitivity 112 *H </=34 ng/L Thyroxine (T4) 4.3 L 4.5-12.0 ug/dL Total Triiodothyronine (TT3) 0.75 0.60-1.81 ng/mL Hemoglobin A1c 8.7 H <5.7 % A1C Urine Color Light-yellow Yellow Urine Clarity Clear Clear Urine pH 6.5 5.0-9.0 Urine Specific [place] 1.020 1.001-1.035 Urine Protein 1+ H Negative Urine Ketones Negative Negative Urine Blood 1+ H Negative /uL Urine Nitrite Negative Negative Urine Bilirubin Negative Negative Urine Urobilinogen Normal Negative mg/dL Urine Leukocyte Esterase Negative Negative /uL Urine RBC None seen 0 - 4 /hpf Urine Microscopic WBC < 1 0-5 /HPF Urine Squamous Epithelial Cells Few <5 /hpf Urine Bacteria None seen None Seen /hpf Urine Glucose Normal Normal mg/dL White Blood Count 4.8 4.4-10.8 10^3/uL Red Blood Count 4.21 4.0-5.20 10^6/uL Hemoglobin 12.4 12.2-16.2 g/dL Hematocrit 37.3 36.0-46.0 % Mean Corpuscular Volume 88.7 80.0-100.0 fL Mean Corpuscular Hemoglobin 29.5 28.0-32.0 pg Mean Corpuscular Hemoglobin Concent 33.3 32.0-36.0 g/dL Red Cell Distribution Width 16.9 H 11.8-14.3 % Platelet Count 188 140-450 10^3/uL Mean Platelet Volume 7.7 6.9-10.8 fL Neutrophils (%) (Auto) 45.5 37.0-80.0 % Lymphocytes (%) (Auto) 43.3 10.0-50.0 % Monocytes (%) (Auto) 7.2 0.0-12.0 % Eosinophils (%) (Auto) 3.1 0.0-7.0 % Basophils (%) (Auto) 0.9 0.0-2.0 % Neutrophils # (Auto) 2.2 1.6-8.6 10 ^3/uL Lymphocytes # (Auto) 2.1 0.4-5.4 10 ^3/uL Monocytes # (Auto) 0.3 0-1.3 10 ^3/uL Eosinophils # (Auto) 0.1 0-0.8 10 ^3/uL Basophils # (Auto) 0 0-0.2 10 ^3/uL Nucleated Red Blood Cells 0.1 % Microbiology Date/Time Source Procedure Growth Status 12/07/24 17:25 Nose MRSA Screen - Final Complete Assessment # Severe hypothyroidism # T2DM # HTN # Multifocal embolic CVA Uncontrolled hypothyroidism due to medication non-compliance for 2mo prior to admission due to running out of refills. No overt s/s of myxedema upon presentation. Significant resolution following multiple days of IV levothyroxine therapy. Appropriate to transition back to PO administration. - Discontinue IV levothyroxine - Start PO levothyroxine 150mcg daily from 3/30 AM - Pill hygiene reviewed - Ensure patient has appropriate supply post-discharge - Repeat TSH, FT4 in 4-6 weeks post discharge - Will follow up with patient in endocrinology clinic Plan discussed with: Patient MICHAEL POPE MD Dec 10, 2024 20:26
--- NOTE | 2024-12-10 23:19 | DVHINCON2 ---
Date of service: Dec 10, [address] Little Reason for Consultation Embolic stroke History of Present Illness Ms. Viramontes he was 74 years old right-handed female with a history of hypertension, diabetes, dyslipidemia, congestive heart failure, obesity, anxiety, she came to the [facility] on 12/06/2024 for anxiety, but in the hospital, the patient was found to have hypothyroidism, and workup showed multiple strokes. She was remembers recently, she had a weird feeling in the whole right side her body (difficulty to specify) lasting for 5 seconds, otherwise the patient denies symptoms suggestive of stroke She was said to have bradycardia 2022, she was evaluated in the [facility] but no etiology was identified CBC, 12/06/2024: Unremarkable BMP, 12/08/2024: Unremarkable HGB A1c, 12/07/2024: 8.7 TSH, 12/09/2024:>150, 12/10/24: >150 CT head, 12/07/2024: 1. There is no acute intracranial process. 2. Evaluation for pituitary lesion is limited on CT. Further evaluation with dedicated MRI brain and pituitary study with contrast is recommended MRI head, 12/09/2024: 1. Scattered subcentimeter foci of acute ischemia in the bilateral frontoparietal lobes and in the right side of the vermis reflecting shower emboli from a central port source. Recommend further evaluation with carotid Doppler, CT or MR angiogram of the head and neck and echocardiogram. 2. Moderate chronic microvascular ischemic changes. 3. The pituitary gland pituitary stalk are normal in morphology with no discrete lesion identified in this unenhanced study. Further evaluation for possible micro adenoma by dedicated dynamic pituitary MRI without and with IV contrast could be completed if clinically warranted. MRA head, neck, 12/10/2024: 1. No evidence of hemodynamically significant intracranial stenosis, proximal occlusion or aneurysm. 2. No evidence of hemodynamically significant cervical stenosis or dissection Past Medical History Hypertension, diabetes, dyslipidemia, congestive heart failure, obesity, anxiety, chronic neck pain, chronic low back pain, chronic knee pain Past Surgical History Benign nasal tumor resection, tubal ligation, appendectomy, tonsillectomy, hysterectomy, left carpal tunnel release, right shoulder surgery, lumbar spine surgery, C-spine surgery Family History: Cardiovascular disease G8 FATHER, Diabetes mellitus G8 MOTHER, Hypertension G8 MOTHER, Family History Hypertension, diabetes, heart disease, cancer, alcohol problem Social History She was tobacco smoker, but denies a history of alcohol or recreational substance abuse Allergies: Coded Allergies: Codeine (Verified Allergy, Unknown, 12/06/24) Penicillins (Verified Allergy, Unknown, 12/06/24) Home Meds Reported Medications Gabapentin (Gabapentin) 600 Mg Tab, 800 MG PO TID, #1 TAB 12/08/24 Folic Acid (Folic Acid) 1 Mg Tab, 1 TAB PO DAILY 12/07/24 Current Medications Current Medications Medications (Trade) Dose Ordered Sig/Haile Route PRN Reason Start Time Stop Time Status Last Admin Levothyroxine Sodium (Synthroid Tablet) 150 mcg QAM@0600 PO 12/11/24 06:00 Melatonin (Melatonin) 5 mg HSPRN PRN PO INSOMNIA 12/10/24 22:00 Review of Systems As above, the other systems are negative Vital Signs Vital Signs Date Time Temp Pulse Resp B/P (MAP) Pulse Ox O2 Delivery O2 Flow Rate FiO2 12/10/24 21:00 98.0 65 16 96/50 (65) 92 98.0 12/10/24 08:00 Room Air* 0 21 Physical Exam GENERAL EXAM: General: the patient is well developed and nourished. No acute distress. HEENT: Normocephalic, neck is supple, no carotid bruits. No mass. RESPIRATORY: Normal respiratory effort with symmetrical lung expansion. Lungs clear to auscultation. CARDIOVASCULAR: Regular rate and rhythm with no murmurs. S1, S2. ABDOMEN: Soft, nontender, normal bowel sound NEUROLOGICAL: MENTAL STATUS: Awake and alert. Oriented to person, place, time and general circumstances. Able to give personal history. SPEECH, LANGUAGE, HIGHER CORTICAL FUNCTION: no aphasia or dysathria. CRANIAL NERVES: #2: Intact visual moreno to confrontation. The optic discs were sharp #3,4,6: Pupils are equal, round and reactive. EOMs full and conjugate. Mild bilateral gaze evoked nystagmus. #5: Facial sensation intact in all three divisions bilaterally. Mandibular strength intact. #7: Facial muscles symmetrical and strength intact. #8: Hearing grossly normal to voice. #9,10: Uvula and soft palate rise in the midline. Swallow and voice are normal. #11: Trapezius and sternomastoid strength intact bilaterally. #12: Tongue midline. No fasciculations or atrophy. SENSATION: Sensation to touch and pinprick is normal. MOTOR: Normal tone in the upper and lower extremity. Normal muscle bulk. No fasciculations. No abnormal movements or posturing. Muscle strength of the major groups in the upper extremities is 5/5. Muscle strength of the major groups in the lower extremities is 5/5. REFLEXES: Deep tendon reflexes normal and symmetrical. No pathological reflexes. CEREBELLAR/COORDINATION: Finger to nose is normal bilaterally. GAIT/STATION: deferred. Labs/Diagnostic Data Labs Test 12/10/24 21:10 12/10/24 15:56 12/09/24 05:11 12/08/24 05:00 Range/Units POC Glucose 216 H 70-106 mg/dl Thyroid Stimulating Hormone (TSH) > 150.00 H 0.55-4.78 uIU/mL Free Triiodothyronine (T3) pg/mL 1.48 L 2.3-4.2 pg/mL Sodium Level 141 136-145 mmol/L Potassium Level 3.8 3.5-5.1 mmol/L Chloride Level 105 98-107 mmol/L Carbon Dioxide Level 28 20-31 mmol/L Anion Gap 8 5-15 Blood Urea Nitrogen 14 9-23 mg/dL Creatinine 1.01 0.550-1.02 mg/dL Glomerular Filtration Rate Calc 59 >90 mL/min BUN/Creatinine Ratio 13.9 10.0-20.0 Serum Glucose 117 H 74-106 mg/dL Calcium Level 9.5 8.7-10.4 mg/dL Test 12/07/24 07:46 12/07/24 05:39 12/07/24 05:13 12/06/24 22:33 Range/Units Troponin I High Sensitivity 112 *H </=34 ng/L Thyroxine (T4) 4.3 L 4.5-12.0 ug/dL Total Triiodothyronine (TT3) 0.75 0.60-1.81 ng/mL Hemoglobin A1c 8.7 H <5.7 % A1C Urine Color Light-yellow Yellow Urine Clarity Clear Clear Urine pH 6.5 5.0-9.0 Urine Specific [place] 1.020 1.001-1.035 Urine Protein 1+ H Negative Urine Ketones Negative Negative Urine Blood 1+ H Negative /uL Urine Nitrite Negative Negative Urine Bilirubin Negative Negative Urine Urobilinogen Normal Negative mg/dL Urine Leukocyte Esterase Negative Negative /uL Urine RBC None seen 0 - 4 /hpf Urine Microscopic WBC < 1 0-5 /HPF Urine Squamous Epithelial Cells Few <5 /hpf Urine Bacteria None seen None Seen /hpf Urine Glucose Normal Normal mg/dL White Blood Count 4.8 4.4-10.8 10^3/uL Red Blood Count 4.21 4.0-5.20 10^6/uL Hemoglobin 12.4 12.2-16.2 g/dL Hematocrit 37.3 36.0-46.0 % Mean Corpuscular Volume 88.7 80.0-100.0 fL Mean Corpuscular Hemoglobin 29.5 28.0-32.0 pg Mean Corpuscular Hemoglobin Concent 33.3 32.0-36.0 g/dL Red Cell Distribution Width 16.9 H 11.8-14.3 % Platelet Count 188 140-450 10^3/uL Mean Platelet Volume 7.7 6.9-10.8 fL Neutrophils (%) (Auto) 45.5 37.0-80.0 % Lymphocytes (%) (Auto) 43.3 10.0-50.0 % Monocytes (%) (Auto) 7.2 0.0-12.0 % Eosinophils (%) (Auto) 3.1 0.0-7.0 % Basophils (%) (Auto) 0.9 0.0-2.0 % Neutrophils # (Auto) 2.2 1.6-8.6 10 ^3/uL Lymphocytes # (Auto) 2.1 0.4-5.4 10 ^3/uL Monocytes # (Auto) 0.3 0-1.3 10 ^3/uL Eosinophils # (Auto) 0.1 0-0.8 10 ^3/uL Basophils # (Auto) 0 0-0.2 10 ^3/uL Nucleated Red Blood Cells 0.1 % Microbiology Date/Time Source Procedure Growth Status 12/07/24 17:25 Nose MRSA Screen - Final Complete Assessment MRI evident acute/subacute multiple strokes Recent discomfort in the whole right side body ? Stroke ? TIA ? Partial simple seizure Plan/Recommendation Monitoring Supportive treatment Telemetry Lipitor profile CLAU Aspirin 81 mg daily Lipitor 20 mg daily Multiple stroke risk effects More recommendation per clinical course This medical document was created using an electronic medical record system with Dragon computerized dictation system. Although this document has been carefully reviewed, there may still be some phonetic and typographical errors. These areas are purely typographical due to imperfections of the software programs, and do not reflect any compromise in the patient's medical care. Plan discussed with: Patient, Other JUAN LUIS PORRAS MD Dec 10, 2024 23:19
[2024-12-11] VITALS (8 sets, daily range): BP systolic 91–127; BP diastolic 54–71; PULSE 68–84; RESP 18–20; TEMP 97.8–98.5; O2SAT 94–97
[2024-12-11 01:16] LABS: LDL Cholesterol 98 mg/dL (< 100); Triglycerides 217 mg/dL (< 150)
[2024-12-11 01:17] LABS: Cholesterol 176 mg/dL (< 200); HDL Cholesterol 47 mg/dL (40-59)
[2024-12-11] MEDS: LEVOTHYROXINE SODIUM 50 MCG TAB PO SCH (06:24)
--- NOTE | 2024-12-11 09:01 | ECG ---
[facility] Test Date: 2024-12-11 Test Time: 00:52:35 Pat Name: TRISTON FARRELL Department: Room: [employer] A Gender: F Supervisor [employer]: jorge : 1950 Requested By: NBA RAMOS Order Number: [id number] Reading MD: Measurements Intervals [place] Rate: 66 P: -55 NM: 242 QRS: -26 QRSD: 99 T: 76 QT: 435 QTc: 456 Interpretive Statements Sinus or ectopic atrial rhythm Atrial premature complexes Prolonged NM interval Abnormal R-wave progression, late transition Left ventricular hypertrophy Please click the below link to view image of tracing.
[2024-12-11] MEDS: ASPirin 81 mg TAB PO SCH (09:29)
--- NOTE | 2024-12-11 13:39 | DVHPN2 ---
Subjective acute stroke Reason for visit: CLAU Reviewed: Care Plan Changes from previous H/P or p: No Changes Objective Vitals Vital Signs Date Time Temp Pulse Resp B/P (MAP) Pulse Ox O2 Delivery O2 Flow Rate FiO2 12/11/24 09:29 127/71 12/11/24 08:32 97.8 68 20 96 97.8 12/11/24 08:00 Room Air* 0 21 Intake/Output Intake and Output 12/11/24 07:00 Intake Total 1390 ml Balance 1390 ml Intake Oral 1390 ml # Voids 5 General Appearance: Alert, Oriented X3, Cooperative, No acute distress Lungs: Clear to auscultation Cardiovascular: Regular rate Neuro: Normal gait Medications Current Medications Medications Dose Ordered Sig/Haile Route Start Time Stop Time Status Last Admin Dose Admin Losartan Potassium 50 mg DAILY PO 12/07/24 10:00 12/11/24 09:28 50 MG Hydralazine HCl 10 mg Q6HP PRN IV 12/07/24 05:00 12/08/24 08:51 10 MG Diagnostic Test (Pha) 1 strip ACHS 12/07/24 07:00 12/11/24 11:49 1 STRIP Insulin Human Regular ACHS SC 12/07/24 07:00 12/11/24 11:49 4 UNITS Dextrose 50 ml UD PRN IV 12/07/24 05:00 Ondansetron HCl 4 mg Q4HP PRN IV 12/07/24 05:00 Acetaminophen 650 mg Q6HP PRN PO 12/07/24 05:00 12/07/24 21:47 650 MG Nitroglycerin 0.4 mg Q5MINP PRN SL 12/07/24 05:00 Morphine Sulfate 2 mg Q30M PRN IV 12/07/24 05:00 Furosemide 20 mg DAILY IV 12/08/24 10:00 12/11/24 09:29 20 MG Gabapentin 800 mg TID PO 12/08/24 22:00 12/11/24 06:25 800 MG Alprazolam 0.5 mg BID PRN PO 12/08/24 14:45 12/10/24 15:35 0.5 MG Hydroxyzine HCl 10 mg Q6HP PRN PO 12/08/24 16:00 Clopidogrel Bisulfate 75 mg DAILY PO 12/09/24 16:15 12/11/24 09:29 75 MG Levothyroxine Sodium 150 mcg QAM@0600 PO 12/11/24 06:00 12/11/24 06:24 150 MCG Melatonin 5 mg HSPRN PRN PO 12/10/24 22:00 Aspirin 81 mg DAILY PO 12/11/24 10:00 12/11/24 09:29 81 MG Atorvastatin Calcium 20 mg HS PO 12/11/24 22:00 Laboratory Results Laboratory Tests 12/06/24 22:33 12/08/24 05:00 Lipid panel Test 12/10/24 15:56 Cholesterol Level 176 mg/dL (< 200) HDL Cholesterol 47 mg/dL (40-59) Triglycerides Level 217 mg/dL (< 150) H HgA1c, TSH Test 12/10/24 15:56 Thyroid Stimulating Hormone (TSH) > 150.00 uIU/mL Urinalysis Test 12/07/24 05:13 Urine Color Light-yellow (Yellow) Urine Clarity Clear (Clear) Urine pH 6.5 (5.0-9.0) Urine Specific [place] 1.020 (1.001-1.035) Urine Protein 1+ (Negative) H Urine Ketones Negative (Negative) Urine Blood 1+ /uL (Negative) H Urine Nitrite Negative (Negative) Urine Bilirubin Negative (Negative) Urine Urobilinogen Normal mg/dL (Negative) Urine Leukocyte Esterase Negative /uL (Negative) Urine RBC None seen /hpf (0 - 4) Urine Microscopic WBC < 1 /HPF (0-5) Urine Squamous Epithelial Cells Few /hpf (<5) Urine Bacteria None seen /hpf (None Seen) Urine Glucose Normal mg/dL (Normal) Microbiology Microbiology Date/Time Source Procedure Growth Status 12/07/24 17:25 Nose MRSA Screen - Final Complete Assessment/Plan Assessment/Plan Acute stroke to rule out cardiac embolism Symptomatic bradycardia in the setting of severe hypothyroidism Acute on chronic decompensated HFpEF Rule out pituitary tumor Hypertension Dyslipidemia Insulin-dependent diabetes mellitus Peripheral neuropathy Obesity Plan/Recommendation (Dr. Monroe) Discussed plan for CLAU procedure with patient. All questions were answered. NPO after midnight Scheduled for noon tomorrow 12/11/[address] Monroe This medical document was created using an electronic medical record system with voice recognition software and computerized dictation system. Although this document has been carefully reviewed, there might still be some phonetic and typographical errors. Occasional wrong-word or ``sound-alike substitutions may have occurred due to the inherent limitations of voice recognition software. These areas are purely typographical due to imperfections of the software programs and do not reflect any compromise in the patient's medical care. Please read the chart carefully and recognize, using context, where these substitutions have occurred. Plan discussed with: Patient, Other Plan discussed with: Patient, Other (RN) Date of Service: Dec 11, 2024 Billing Provider: DIVINA MONROE Sr., MD Common Visit Codes: CONSULT ONLY JACKY ARREAGA MUSIC ENGINEER Dec 11, 2024 13:39
--- NOTE | 2024-12-11 15:04 | DVHPN2 ---
Subjective Patient is feeling much better, MRI was done which shows evidence of subcentimeter embolic infarcts in the frontoparietal lobes as well as murmurs. MRA head and neck has been ordered, aspirin Plavix and statin has been started and Neurology has been consulted. Patient is being recommended to have MELA. Reason for visit: MELA Reviewed: Care Plan Changes from previous H/P or p: No Changes Objective Vitals Vital Signs Date Time Temp Pulse Resp B/P (MAP) Pulse Ox O2 Delivery O2 Flow Rate FiO2 12/11/24 13:00 98.5 75 18 106/60 (75) 94 98.5 12/11/24 08:00 Room Air* 0 21 Intake/Output Intake and Output 12/11/24 07:00 Intake Total 1390 ml Balance 1390 ml Intake Oral 1390 ml # Voids 5 Exam HEENT pupils are reactive Neck is supple CV is S1-S2 regular rhythm positive bradycardia in 50-55 Respiratory bilateral clear GI positive bowel sound Extremity no edema MAP COLORER no motor deficit General Appearance: Alert, Oriented X3, Cooperative, No acute distress Lungs: Clear to auscultation Cardiovascular: Regular rate Neuro: Normal gait Medications Current Medications Medications Dose Ordered Sig/Haile Route Start Time Stop Time Status Last Admin Dose Admin Losartan Potassium 50 mg DAILY PO 12/07/24 10:00 12/11/24 09:28 50 MG Hydralazine HCl 10 mg Q6HP PRN IV 12/07/24 05:00 12/08/24 08:51 10 MG Diagnostic Test (Pha) 1 strip ACHS 12/07/24 07:00 12/11/24 11:49 1 STRIP Insulin Human Regular ACHS SC 12/07/24 07:00 12/11/24 11:49 4 UNITS Dextrose 50 ml UD PRN IV 12/07/24 05:00 Ondansetron HCl 4 mg Q4HP PRN IV 12/07/24 05:00 Acetaminophen 650 mg Q6HP PRN PO 12/07/24 05:00 12/07/24 21:47 650 MG Nitroglycerin 0.4 mg Q5MINP PRN SL 12/07/24 05:00 Morphine Sulfate 2 mg Q30M PRN IV 12/07/24 05:00 Furosemide 20 mg DAILY IV 12/08/24 10:00 12/11/24 09:29 20 MG Gabapentin 800 mg TID PO 12/08/24 22:00 12/11/24 14:42 800 MG Alprazolam 0.5 mg BID PRN PO 12/08/24 14:45 12/10/24 15:35 0.5 MG Hydroxyzine HCl 10 mg Q6HP PRN PO 12/08/24 16:00 Clopidogrel Bisulfate 75 mg DAILY PO 12/09/24 16:15 12/11/24 09:29 75 MG Levothyroxine Sodium 150 mcg QAM@0600 PO 12/11/24 06:00 12/11/24 06:24 150 MCG Melatonin 5 mg HSPRN PRN PO 12/10/24 22:00 Aspirin 81 mg DAILY PO 12/11/24 10:00 12/11/24 09:29 81 MG Atorvastatin Calcium 20 mg HS PO 12/11/24 22:00 Laboratory Results Laboratory Tests 12/06/24 22:33 12/08/24 05:00 Lipid panel Test 12/10/24 15:56 Cholesterol Level 176 mg/dL (< 200) HDL Cholesterol 47 mg/dL (40-59) Triglycerides Level 217 mg/dL (< 150) H HgA1c, TSH Test 12/10/24 15:56 Thyroid Stimulating Hormone (TSH) > 150.00 uIU/mL Urinalysis Test 12/07/24 05:13 Urine Color Light-yellow (Yellow) Urine Clarity Clear (Clear) Urine pH 6.5 (5.0-9.0) Urine Specific [place] 1.020 (1.001-1.035) Urine Protein 1+ (Negative) H Urine Ketones Negative (Negative) Urine Blood 1+ /uL (Negative) H Urine Nitrite Negative (Negative) Urine Bilirubin Negative (Negative) Urine Urobilinogen Normal mg/dL (Negative) Urine Leukocyte Esterase Negative /uL (Negative) Urine RBC None seen /hpf (0 - 4) Urine Microscopic WBC < 1 /HPF (0-5) Urine Squamous Epithelial Cells Few /hpf (<5) Urine Bacteria None seen /hpf (None Seen) Urine Glucose Normal mg/dL (Normal) Microbiology Microbiology Date/Time Source Procedure Growth Status 12/07/24 17:25 Nose MRSA Screen - Final Complete Assessment/Plan Assessment/Plan 74-year-old female with a known history of hypertension, diabetes mellitus type 2, severe anxiety disorder initially presented to the hospital with generalized weakness found to have 1. Symptomatic bradycardia secondary to severe hypothyroidism, resolved 2. Severe hypothyroidism currently on levothyroxine IV, switched to p.o. levothyroxine 3. Acute on chronic congestive heart failure exacerbation with systolic dysfunction currently compensated 4. Hypertension 5. Dyslipidemia 6. Diabetes mellitus type [address] head with the pituitary stalk, MRI brain did not show any pituitary pathology 8. Acute subcentimeter embolic CVA in why that is a frontoparietal lobes, no residual deficit -patient was stated that she takes hydroxyzine for severe anxiety at home. -aspirin, Plavix, statin, neurology consultations appreciated, mela -discontinue IV levothyroxine, start levothyroxine as per endocrinology recommendations, follow up repeat TSH free T4. -endocrinology consultation appreciated -plan of care explained to the patient in detail who understand verbalized understanding and agreeable to plan. -keep NPO after midnight for MELA tomorrow Plan discussed with: Patient My Orders Orders - ROBIN WADE MD Procedure Category Date Status Time Free T4 (Free LAB 12/10/24 In Process Thyroxine) 15:07 Thyroid Stimulating LAB 12/12/24 Verified Hormone 04:00 Free T3 LAB 12/12/24 Verified 04:00 Free T4 (Free LAB 12/12/24 Verified Thyroxine) 04:00 Date of Service: Dec 11, 2024 Billing Provider: ROBIN WADE MD Common Visit Codes: NOT BILLABLE ROBIN WADE MD Dec 11, 2024 15:04
[2024-12-11] MEDS ORDERED: OXYB5TAB14 PO (18:21)
[2024-12-11] MEDS: OXYBUTYNIN CHL 5 MG TAB PO SCH (20:20)
[2024-12-11] MEDS: ATORVASTATIN 20 MG TAB PO SCH (20:20)
[2024-12-11] MEDS ORDERED: HYDROcodone-ACET 5/325MG TAB PO PRN (21:15)
--- NOTE | 2024-12-11 23:49 | DVHPN2 ---
Consult Progress Note Subjective Other Systems: Patient was seen and evaluated in follow up. Patient reports feeling better. Patient will be planned for CLAU. BS are in the 160's. Telemetry reviewed. Objective vital signs Vital Sign Date Time Temp Pulse Resp B/P (MAP) Pulse Ox O2 Delivery O2 Flow Rate FiO2 12/11/24 17:00 98.3 70 20 91/54 (66) 97 98.3 12/11/24 08:00 Room Air* 0 21 Total Intake and Output 12/10/24 12/10/24 12/11/24 15:00 23:00 07:00 Intake Total 590 ml 800 ml Balance 590 ml 800 ml medications Current Medications Medications Dose Ordered Sig/Haile Route Start Time Stop Time Status Last Admin Dose Admin Losartan Potassium 50 mg DAILY PO 12/07/24 10:00 12/11/24 09:28 50 MG Hydralazine HCl 10 mg Q6HP PRN IV 12/07/24 05:00 12/08/24 08:51 10 MG Diagnostic Test (Pha) 1 strip ACHS 12/07/24 07:00 12/11/24 17:00 1 STRIP Insulin Human Regular ACHS SC 12/07/24 07:00 12/11/24 17:34 3 UNITS Dextrose 50 ml UD PRN IV 12/07/24 05:00 Ondansetron HCl 4 mg Q4HP PRN IV 12/07/24 05:00 Acetaminophen 650 mg Q6HP PRN PO 12/07/24 05:00 12/11/24 20:20 650 MG Nitroglycerin 0.4 mg Q5MINP PRN SL 12/07/24 05:00 Morphine Sulfate 2 mg Q30M PRN IV 12/07/24 05:00 Furosemide 20 mg DAILY IV 12/08/24 10:00 12/11/24 09:29 20 MG Gabapentin 800 mg TID PO 12/08/24 22:00 12/11/24 20:20 800 MG Alprazolam 0.5 mg BID PRN PO 12/08/24 14:45 12/10/24 15:35 0.5 MG Hydroxyzine HCl 10 mg Q6HP PRN PO 12/08/24 16:00 Clopidogrel Bisulfate 75 mg DAILY PO 12/09/24 16:15 12/11/24 09:29 75 MG Levothyroxine Sodium 150 mcg QAM@0600 PO 12/11/24 06:00 12/11/24 06:24 150 MCG Melatonin 5 mg HSPRN PRN PO 12/10/24 22:00 Aspirin 81 mg DAILY PO 12/11/24 10:00 12/11/24 09:29 81 MG Atorvastatin Calcium 20 mg HS PO 12/11/24 22:00 12/11/24 20:20 20 MG Oxybutynin Chloride 5 mg Q12HR PO 12/11/24 22:00 12/11/24 20:20 5 MG Examination: GENERAL:Normal, HEENT:Normal, NECK:Normal, LUNGS:Normal, CVS:Normal, ABDOMEN:Normal, MSK:Normal, SKIN:Normal, NEURO:Normal laboratory and microbiology Laboratory Tests 12/08/24 05:00 12/06/24 22:33 Test 12/08/24 05:00 Range/Units Serum Glucose 117 H 74-106 mg/dL Problem List/Assessment/Plan Problem List/Assessment/Plan Acute stroke to rule out cardiac embolism. Symptomatic bradycardia in the setting of severe hypothyroidism. Acute on chronic decompensated HFpEF. Rule out pituitary tumor. Hypertension. Dyslipidemia. Insulin-dependent diabetes mellitus. Peripheral neuropathy. Obesity. Plan/Recommendation Continued all current supportive medical care. Patient has been seen by Indu Romero NP on my behalf, her and I discussed the plan with the patient. Discussed plan for CLAU procedure with patient. All questions were answered. NPO after midnight Scheduled for noon tomorrow 12/11/[address] Monroe Additional plan as per the hospital course. Plan discussed with: Patient Dietary Evaluation Review Recommendations by RD: Dietary education by RD Comments: 1) Add 60g CCHO restriction to cardiac diet. Continue to encourage optimal PO intake 2) Refer to outpatient RD/CDCES for DM education and weight management 3) Follow-up with neurology and cardiology 4) Continue to monitor I&O, labs, and skin integrity Expected Outcomes/Goals: 1) appetite and labs to improve 2) f/u in 3-5 days Date of Service: Dec 11, 2024 Billing Provider: LUCILA SIDDIQUI MD Cardiology Common Codes: [id number] HOSP CARE(High LUCILA SIDDIQUI MD Dec 11, 2024 20:49
[2024-12-12] VITALS (10 sets, daily range): BP systolic 92–148; BP diastolic 51–83; PULSE 47–94; RESP 12–20; TEMP 97.5–98.1; O2SAT 94–99
[2024-12-12] MEDS: MELATONIN 5 MG TAB PO PRN (00:20)
[2024-12-12 01:31] LABS: Urine Bacteria None Seen /hpf (None Seen)
[2024-12-12 02:03] LABS: Urine Blood Negative /uL (Negative); Urine Clarity Turbid (Clear); Urine Color Yellow (Yellow); Urine Mucus FEW (None Seen); Urine Protein, UAD 2+ (Negative); Urine Specific Gravity 1.033 (1.001-1.035); Urine Squamous Epithelial Cell MOD /hpf (<5); Urine Urobilinogen 2 mg/dL (Negative); Urine WBC 3 /HPF (0-5)
[2024-12-12 06:14] LABS: Basophils # (auto) 0 10 ^3/uL (0-0.2); Eosinophils # (auto) 0.2 10 ^3/uL (0-0.8); Eosinophils % (auto) 4.4 % (0.0-7.0); Hematocrit 32.8 % (36.0-46.0); Hemoglobin 11.1 g/dL (12.2-16.2); Lymphocytes # (auto) 2.2 10 ^3/uL (0.4-5.4); Lymphocytes % (auto) 49.4 % (10.0-50.0); Mean Corpuscular Hgb Conc. 33.8 g/dL (32.0-36.0); Mean Corpuscular Volume 88.7 fL (80.0-100.0); Monocytes # (auto) 0.3 10 ^3/uL (0-1.3); Monocytes % (auto) 7.3 % (0.0-12.0); Neutrophils # (auto) 1.7 10 ^3/uL (1.6-8.6); Neutrophils % (auto) 37.9 % (37.0-80.0); Nucleated Red Blood Cells % 0.3 %; Platelet Count (auto) 172 10^3/uL (140-450); Red Cell Distribution Width 17.1 % (11.8-14.3); White Blood Cell 4.4 10^3/uL (4.4-10.8)
[2024-12-12] MEDS: hydrOXYzine HCL 10 MG TAB PO PRN (06:24)
[2024-12-12 06:25] LABS: Anion Gap 7 (5-15); Carbon Dioxide 29 mmol/L (20-31); Potassium 3.7 mmol/L (3.5-5.1); Sodium 143 mmol/L (136-145)
[2024-12-12 06:26] LABS: Calcium 9.1 mg/dL (8.7-10.4); Chloride 107 mmol/L (98-107)
[2024-12-12 06:31] LABS: BUN/Creatinine Ratio 17.1 (10.0-20.0); Blood Urea Nitrogen 18 mg/dL (9-23)
[2024-12-12 06:34] LABS: Glucose 117 mg/dL (74-106)
[2024-12-12 06:37] LABS: INR 1.09 (0.9-1.15); Partial Thromboplastin Time 26.2 SEC (24.5-34.5); Prothrombin Time 11.5 sec (9.3-11.8)
--- NOTE | 2024-12-12 06:46 | DVH ---
EXAM: XR Chest, 1 View CLINICAL INDICATION: Procedure TECHNIQUE: Frontal view of the chest. COMPARISON: XY CHEST XRAY 1 VIEW on DOS: 12/07/24 FINDINGS: LUNGS AND PLEURAL SPACES: Pulmonary venous congestion. No consolidation. No pneumothorax. HEART: Unremarkable. No cardiomegaly. MEDIASTINUM: Unremarkable. Normal mediastinal contour. BONES/JOINTS: Unremarkable. No acute fracture. OTHER FINDINGS: . IMPRESSION: Pulmonary venous congestion.
--- NOTE | 2024-12-12 08:05 | DVHINCON2 ---
Neuro Consultation Date of Consultation Date: 12/12/24 History of Present Illness History of Present Illness: Luci Viramontes is a 74 year old female with HTN, HLD, DM2, Uterine cancer (s/p hysterectomy in 1999)who presents with stroke She notes that about 2-3 weeks ago she had a brief episode of feeling heavy on her R side (<3 minutes) with no other associate symptoms. She came into the er due to generalize weakness, anxiety. Of note, she came off all her medications in October as she was in acute post rehab for knee issues but ended up not having surgery. She was only given her medications 1.5 weeks and hasn't been able to see her PCP. Review of Systems Review of Systems: Review of Systems: 12 point review of systems is negative unless stated in HPI. Family History Patient History: Cardiovascular disease G8 FATHER, Diabetes mellitus G8 MOTHER, Hypertension G8 MOTHER, Allergies and Medications Allergies: Coded Allergies: Codeine (Verified Allergy, Unknown, 12/06/24) Penicillins (Verified Allergy, Unknown, 12/06/24) Home Meds: Active Scripts Losartan Potassium (Losartan Potassium) 50 Mg Tab, 50 MG PO DAILY, #30 TAB Prov:ROBIN WADE MD 12/12/24 Apixaban Base (ELIQUIS) 5 Mg Tab, 5 MG PO BID, #60 TAB Prov:ROBIN WADE MD 12/12/24 Atorvastatin Calcium (ATORVASTATIN CALCIUM) 40 Mg Tab, 1 TAB PO QPM, #30 TAB 3 Refills Prov:ROBIN WADE MD 12/12/24 Levothyroxine Sodium (Levothyroxine Sodium) 50 Mcg Tab, 150 MCG PO QAM@0600, #30 TAB Prov:ROBIN WADE MD 12/12/24 Reported Medications Oxybutynin Chloride (Oxybutynin Chloride) 5 Mg Tab, 5 MG PO BID, TAB 12/11/24 Gabapentin (Gabapentin) 600 Mg Tab, 800 MG PO TID, #1 TAB 12/08/24 Folic Acid (Folic Acid) 1 Mg Tab, 1 TAB PO DAILY 12/07/24 Current Medications: General Examination Last Vital sign Vital Signs Date Time Temp Pulse Resp B/P (MAP) Pulse Ox O2 Delivery O2 Flow Rate FiO2 12/12/24 20:53 98.1 89 16 100/61 (74) 97 98.1 3/31/25 08:05 Room Air* 0 21 General Exam: General Examination: General: No apparent distress, appears comfortable. Cooperative HEENT: Normocephalic, atraumatic. Supple neck. No oropharynx lesion or exudate noted. Extremities: No noted edema or cyanosis Skin: No noted rashes or jaundice. Neuro Exam: Mental Status: Alert and orientated to person, place, and time. Speech is fluent and logical, no aphasia noted. Cranial Nerves: Pupils are equally round and reactive, extraocular muscles are intact. No ptosis on primary gaze or fatigable ptosis noted. Intact sensation to light touch on face through V1-V3. No facial asymmetry noted. Tongue is midline with symmetrical palate elevation. Shoulder shrug is symmetrical. Motor: Bulk and tone is normal. No abnormal movements were noted. Upper extremity (R/L) Infraspinatus 5/5 Deltoid 5/5 Biceps 5/5 Triceps 5/5 Wrist extension 5/5 Wrist flexion 5/5 Finger extension 5/5 Finger flexion 5/5 Interosseous 5/5 Lower Extremity (R/L) Iliopsoas 5/5 Quadriceps 5/5 Hamstrings 5/5 Dorsiflexion 5/5 Plantarflexion 5/5 Toe extension 5/5 Sensory: Intact to light touch Reflexes (R/L) +2 throughout Plantar down/down Coordination: No dysmetria on finger nose finger, heel knee steven. No ataxia noted Labs: Laboratory Tests Test 12/06/24 22:33 12/07/24 05:13 12/07/24 05:39 12/07/24 06:31 Range/Units White Blood Count 4.8 4.4-10.8 10^3/uL Red Blood Count 4.21 4.0-5.20 10^6/uL Hemoglobin 12.4 12.2-16.2 g/dL Hematocrit 37.3 36.0-46.0 % Mean Corpuscular Volume 88.7 80.0-100.0 fL Mean Corpuscular Hemoglobin 29.5 28.0-32.0 pg Mean Corpuscular Hemoglobin Concent 33.3 32.0-36.0 g/dL Red Cell Distribution Width 16.9 H 11.8-14.3 % Platelet Count 188 140-450 10^3/uL Mean Platelet Volume 7.7 6.9-10.8 fL Neutrophils (%) (Auto) 45.5 37.0-80.0 % Lymphocytes (%) (Auto) 43.3 10.0-50.0 % Monocytes (%) (Auto) 7.2 0.0-12.0 % Eosinophils (%) (Auto) 3.1 0.0-7.0 % Basophils (%) (Auto) 0.9 0.0-2.0 % Neutrophils # (Auto) 2.2 1.6-8.6 10 ^3/uL Lymphocytes # (Auto) 2.1 0.4-5.4 10 ^3/uL Monocytes # (Auto) 0.3 0-1.3 10 ^3/uL Eosinophils # (Auto) 0.1 0-0.8 10 ^3/uL Basophils # (Auto) 0 0-0.2 10 ^3/uL Nucleated Red Blood Cells 0.1 % Sodium Level 141 136-145 mmol/L Potassium Level 3.7 3.5-5.1 mmol/L Chloride Level 107 98-107 mmol/L Carbon Dioxide Level 26 20-31 mmol/L Anion Gap 8 5-15 Blood Urea Nitrogen 15 9-23 mg/dL Creatinine 1.06 H 0.550-1.02 mg/dL Glomerular Filtration Rate Calc 55 >90 mL/min BUN/Creatinine Ratio 14.2 10.0-20.0 Serum Glucose 145 H 74-106 mg/dL Calcium Level 9.8 8.7-10.4 mg/dL Troponin I High Sensitivity 122 *H 118 *H </=34 ng/L Urine Color Light-yellow Yellow Urine Clarity Clear Clear Urine pH 6.5 5.0-9.0 Urine Specific [place] 1.020 1.001-1.035 Urine Protein 1+ H Negative Urine Ketones Negative Negative Urine Blood 1+ H Negative /uL Urine Nitrite Negative Negative Urine Bilirubin Negative Negative Urine Urobilinogen Normal Negative mg/dL Urine Leukocyte Esterase Negative Negative /uL Urine RBC None seen 0 - 4 /hpf Urine Microscopic WBC < 1 0-5 /HPF Urine Squamous Epithelial Cells Few <5 /hpf Urine Bacteria None seen None Seen /hpf Urine Glucose Normal Normal mg/dL Hemoglobin A1c 8.7 H <5.7 % A1C Thyroid Stimulating Hormone (TSH) > 150.00 H 0.55-4.78 uIU/mL POC Glucose 145 H 70-106 mg/dl Test 12/07/24 07:46 12/07/24 11:55 12/07/24 16:48 12/08/24 05:00 Range/Units Troponin I High Sensitivity 112 *H </=34 ng/L Thyroxine (T4) 4.3 L 4.5-12.0 ug/dL Total Triiodothyronine (TT3) 0.75 0.60-1.81 ng/mL POC Glucose 143 H 149 H 70-106 mg/dl Sodium Level 141 136-145 mmol/L Potassium Level 3.8 3.5-5.1 mmol/L Chloride Level 105 98-107 mmol/L Carbon Dioxide Level 28 20-31 mmol/L Anion Gap 8 5-15 Blood Urea Nitrogen 14 9-23 mg/dL Creatinine 1.01 0.550-1.02 mg/dL Glomerular Filtration Rate Calc 59 >90 mL/min BUN/Creatinine Ratio 13.9 10.0-20.0 Serum Glucose 117 H 74-106 mg/dL Calcium Level 9.5 8.7-10.4 mg/dL Test 12/08/24 06:53 12/08/24 12:12 12/08/24 17:18 12/09/24 05:11 Range/Units POC Glucose 147 H 173 H 129 H 70-106 mg/dl Thyroid Stimulating Hormone (TSH) > 150.00 H 0.55-4.78 uIU/mL Free Thyroxine (T4) Calculated 0.71 L 0.89-1.76 ng/dL Free Triiodothyronine (T3) pg/mL 1.48 L 2.3-4.2 pg/mL Test 12/09/24 05:13 12/09/24 11:24 12/09/24 16:19 12/09/24 20:05 Range/Units POC Glucose 127 H 164 H 159 H 214 H 70-106 mg/dl Test 12/10/24 05:04 12/10/24 12:05 12/10/24 15:56 12/10/24 16:45 Range/Units POC Glucose 106 126 H 141 H 70-106 mg/dl Triglycerides Level 217 H < 150 mg/dL Cholesterol Level 176 < 200 mg/dL LDL Cholesterol 98 < 100 mg/dL HDL Cholesterol 47 40-59 mg/dL Thyroid Stimulating Hormone (TSH) > 150.00 H 0.55-4.78 uIU/mL Free Thyroxine (T4) Calculated 0.92 0.89-1.76 ng/dL Test 12/10/24 21:10 12/11/24 06:06 12/11/24 11:34 12/11/24 17:01 Range/Units POC Glucose 216 H 181 H 231 H 164 H 70-106 mg/dl Test 12/11/24 21:25 12/12/24 01:09 12/12/24 04:57 12/12/24 06:24 Range/Units POC Glucose 139 H 119 H 70-106 mg/dl Urine Color Yellow Yellow Urine Clarity Turbid H Clear Urine pH 6.0 5.0-9.0 Urine Specific [place] 1.033 1.001-1.035 Urine Protein 2+ H Negative Urine Ketones Trace Negative Urine Blood Negative Negative /uL Urine Nitrite Negative Negative Urine Bilirubin Negative Negative Urine Urobilinogen 2 H Negative mg/dL Urine Leukocyte Esterase Negative Negative /uL Urine RBC None seen 0 - 4 /hpf Urine Microscopic WBC 3 0-5 /HPF Urine Squamous Epithelial Cells Mod <5 /hpf Urine Bacteria None seen None Seen /hpf Urine Mucus Few None Seen Urine Glucose Normal Normal mg/dL White Blood Count 4.4 4.4-10.8 10^3/uL Red Blood Count 3.70 L 4.0-5.20 10^6/uL Hemoglobin 11.1 L 12.2-16.2 g/dL Hematocrit 32.8 #L 36.0-46.0 % Mean Corpuscular Volume 88.7 80.0-100.0 fL Mean Corpuscular Hemoglobin 30.0 28.0-32.0 pg Mean Corpuscular Hemoglobin Concent 33.8 32.0-36.0 g/dL Red Cell Distribution Width 17.1 H 11.8-14.3 % Platelet Count 172 140-450 10^3/uL Mean Platelet Volume 7.9 6.9-10.8 fL Neutrophils (%) (Auto) 37.9 37.0-80.0 % Lymphocytes (%) (Auto) 49.4 10.0-50.0 % Monocytes (%) (Auto) 7.3 0.0-12.0 % Eosinophils (%) (Auto) 4.4 0.0-7.0 % Basophils (%) (Auto) 1.0 0.0-2.0 % Neutrophils # (Auto) 1.7 1.6-8.6 10 ^3/uL Lymphocytes # (Auto) 2.2 0.4-5.4 10 ^3/uL Monocytes # (Auto) 0.3 0-1.3 10 ^3/uL Eosinophils # (Auto) 0.2 0-0.8 10 ^3/uL Basophils # (Auto) 0 0-0.2 10 ^3/uL Nucleated Red Blood Cells 0.3 % Prothrombin Time 11.5 9.3-11.8 sec Prothrombin Time INR 1.09 0.9-1.15 Activated Partial Thromboplast Time 26.2 24.5-34.5 SEC Sodium Level 143 136-145 mmol/L Potassium Level 3.7 3.5-5.1 mmol/L Chloride Level 107 98-107 mmol/L Carbon Dioxide Level 29 20-31 mmol/L Anion Gap 7 5-15 Blood Urea Nitrogen 18 9-23 mg/dL Creatinine 1.05 H 0.550-1.02 mg/dL Glomerular Filtration Rate Calc 56 >90 mL/min BUN/Creatinine Ratio 17.1 10.0-20.0 Serum Glucose 117 H 74-106 mg/dL Calcium Level 9.1 8.7-10.4 mg/dL Thyroid Stimulating Hormone (TSH) 104.31 H 0.55-4.78 uIU/mL Free Thyroxine (T4) Calculated 0.86 L 0.89-1.76 ng/dL Free Triiodothyronine (T3) pg/mL 1.81 L 2.3-4.2 pg/mL Test 12/12/24 11:16 12/12/24 17:49 12/12/24 21:03 Range/Units POC Glucose 158 H 202 H 153 H 70-106 mg/dl Assessment/Plan 1. Embolic stroke - history of HTN, HLD, DM2, Uterine cancer (s/p hysterectomy in 1999)who presents with stroke. 11/2024 MRA head and neck - no acute process. 11/2024 MRI Brain wo contrast scattered subcm foci of acute ischemic in the bilateral frontoparietal lobes and in the R side of the vermis reflecting shower emboli from central port source. HgA1C 8.7%, LDL 98, - Pending CLAU - Consider anticoagulation (Eliquis 5mg BID) - Keep SBP < 130, LDL < 70, HgA1C 6% Plan discussed with: Patient BOBBI MARINELLI MD Dec 12, 2024 08:05
[2024-12-12 10:52] LABS: Free T3 1.81 pg/mL (2.3-4.2)
[2024-12-12 10:54] LABS: Free T4 (Free Thyroxine) 0.86 ng/dL (0.89-1.76)
[2024-12-12] MEDS ORDERED: fentaNYL CITRATE 100 MCG/2 ML VL IV ONE (12:15)
[2024-12-12] MEDS ORDERED: MIDAZOLAM HCL 2MG/2ML 2ml VIAL (1mg/ml) IV ONE (12:15)
[2024-12-12] MEDS ORDERED: LIDOCAINE VISCOUS 2% 15ML UD PO ONE (12:15)
--- NOTE | 2024-12-12 13:36 | DVHOP ---
PROCEDURE PERFORMED: Transesophageal echocardiogram. INDICATION: CVA. DESCRIPTION OF PROCEDURE: Prior full informed consent obtained, the patient was prepped and draped in the usual fashion and the patient was placed in left lateral and semi-Galeano position. Lidocaine gel was given for patient to gargle. The transesophageal probe was passed without difficulty. Conscious sedation was given. I personally monitored the patient throughout the duration of 2 of Versed and 50 mcg of fentanyl. CONCLUSIONS: * Technically good study, sinus rhythm. * Normal chamber sizes. * There is mild aortic sclerosis with mild calcification, but adequate excursion of the leaflets. The mitral and tricuspid are structurally normal. The pulmonic could not be clearly visualized. * Left ventricular systolic performance is preserved at 60% with normal right ventricular function. * Doppler reveals mild TR. Trace aortic insufficiency. No atrial or ventricular septal defects noted. * There is no pericardial effusion. No masses or vegetations. The atrial appendage looks clean without thrombi present. * There is a negative study. Agitated saline injected into the antecubital vein. Enhancing right atrial chambers with microbubbles did not reveal a VSD or an ASD. of the left circulation. The patient tolerated the procedure well. There were no complications. MD DENNIS Hernandez/YEIMY/NAINA TID: [id number] RECEIPT: [id number]
[2024-12-12] MEDS ORDERED: ATOR40TA52 PO (16:33)
[2024-12-12] MEDS ORDERED: LEVO50TA7 PO (16:33)
[2024-12-12] MEDS ORDERED: APIX5TAB PO (16:33)
[2024-12-12] MEDS ORDERED: LOSA-534 PO (16:35)
--- NOTE | 2024-12-12 16:38 | DVHDS2 ---
Discharge Summary Date of Admission Dec 07, 2024 at 05:00 Date of Discharge: Dec 12, 2024 Labs/Diagnostic Data: Laboratory Results Test 12/12/24 11:16 12/12/24 04:57 12/12/24 01:09 12/10/24 15:56 POC Glucose 158 mg/dl (70-106) White Blood Count 4.4 10^3/uL (4.4-10.8) Red Blood Count 3.70 10^6/uL (4.0-5.20) Hemoglobin 11.1 g/dL (12.2-16.2) Hematocrit 32.8 % (36.0-46.0) Mean Corpuscular Volume 88.7 fL (80.0-100.0) Mean Corpuscular Hemoglobin 30.0 pg (28.0-32.0) Mean Corpuscular Hemoglobin Concent 33.8 g/dL (32.0-36.0) Red Cell Distribution Width 17.1 % (11.8-14.3) Platelet Count 172 10^3/uL (140-450) Mean Platelet Volume 7.9 fL (6.9-10.8) Neutrophils (%) (Auto) 37.9 % (37.0-80.0) Lymphocytes (%) (Auto) 49.4 % (10.0-50.0) Monocytes (%) (Auto) 7.3 % (0.0-12.0) Eosinophils (%) (Auto) 4.4 % (0.0-7.0) Basophils (%) (Auto) 1.0 % (0.0-2.0) Neutrophils # (Auto) 1.7 10 ^3/uL (1.6-8.6) Lymphocytes # (Auto) 2.2 10 ^3/uL (0.4-5.4) Monocytes # (Auto) 0.3 10 ^3/uL (0-1.3) Eosinophils # (Auto) 0.2 10 ^3/uL (0-0.8) Basophils # (Auto) 0 10 ^3/uL (0-0.2) Nucleated Red Blood Cells 0.3 % Prothrombin Time 11.5 sec (9.3-11.8) Prothrombin Time INR 1.09 (0.9-1.15) Activated Partial Thromboplast Time 26.2 SEC (24.5-34.5) Sodium Level 143 mmol/L (136-145) Potassium Level 3.7 mmol/L (3.5-5.1) Chloride Level 107 mmol/L (98-107) Carbon Dioxide Level 29 mmol/L (20-31) Anion Gap 7 (5-15) Blood Urea Nitrogen 18 mg/dL (9-23) Creatinine 1.05 mg/dL (0.550-1.02) Glomerular Filtration Rate Calc 56 mL/min (>90) BUN/Creatinine Ratio 17.1 (10.0-20.0) Serum Glucose 117 mg/dL (74-106) Calcium Level 9.1 mg/dL (8.7-10.4) Thyroid Stimulating Hormone (TSH) 104.31 uIU/mL (0.55-4.78) Free Thyroxine (T4) Calculated 0.86 ng/dL (0.89-1.76) Free Triiodothyronine (T3) pg/mL 1.81 pg/mL (2.3-4.2) Urine Color Yellow (Yellow) Urine Clarity Turbid (Clear) Urine pH 6.0 (5.0-9.0) Urine Specific [place] 1.033 (1.001-1.035) Urine Protein 2+ (Negative) Urine Ketones Trace (Negative) Urine Blood Negative /uL (Negative) Urine Nitrite Negative (Negative) Urine Bilirubin Negative (Negative) Urine Urobilinogen 2 mg/dL (Negative) Urine Leukocyte Esterase Negative /uL (Negative) Urine RBC None seen /hpf (0 - 4) Urine Microscopic WBC 3 /HPF (0-5) Urine Squamous Epithelial Cells Mod /hpf (<5) Urine Bacteria None seen /hpf (None Seen) Urine Mucus Few (None Seen) Urine Glucose Normal mg/dL (Normal) Triglycerides Level 217 mg/dL (< 150) Cholesterol Level 176 mg/dL (< 200) LDL Cholesterol 98 mg/dL (< 100) HDL Cholesterol 47 mg/dL (40-59) Test 12/07/24 07:46 12/07/24 05:39 Troponin I High Sensitivity 112 ng/L (</=34) Thyroxine (T4) 4.3 ug/dL (4.5-12.0) Total Triiodothyronine (TT3) 0.75 ng/mL (0.60-1.81) Hemoglobin A1c 8.7 % A1C (<5.7) Other Laboratory Tests 12/12/24 04:57 Brief Hx & Hospital Course: 74-year-old female with a known history of hypertension, diabetes mellitus type 2, severe anxiety disorder initially presented to the hospital with generalized weakness found to have symptomatic bradycardia secondary to severe hypothyroidism. Patient was started on IV levothyroxine. Patient does not use any beta karri at home. Endocrinology was consulted levothyroxine IV was switched to p.o.. Patient was also found to have incidental finding of pituitary stalk ,eventually MRI was done which shows acute embolic CVA in frontoparietal lobes as well as vermis without any focal deficit. Patient was initially started on aspirin Plavix and statin. Patient underwent CLAU which shows no evidence of any pathology in the heart. Neurology and cardiology recommended Eliquis to be started. Patient will be given Eliquis for home. Patient needs having close follow up with endocrinology Cardiology and Neurology. Patient will be provided home health home safety evaluation. Condition at Discharge: Stable Final Diagnosis/Problems List 74-year-old female with a known history of hypertension, diabetes mellitus type 2, severe anxiety disorder initially presented to the hospital with generalized weakness found to have 1. Symptomatic bradycardia secondary to severe hypothyroidism, resolved 2. Severe hypothyroidism currently on levothyroxine IV, switched to p.o. levothyroxine 3. Acute on chronic congestive heart failure exacerbation with systolic dysfunction currently compensated 4. Hypertension 5. Dyslipidemia 6. Diabetes mellitus type [address] head with the pituitary stalk, MRI brain did not show any pituitary pathology 8. Acute subcentimeter embolic CVA in why that is a frontoparietal lobes, no residual deficit -patient was stated that she takes hydroxyzine for severe anxiety at home. Discharge Disposition: Home with Health Services SNF Discharge Will this Physician continue t: No Discharge Instruct/Medications Diet: Cardiac 2g Na,low cholest Activity: No Restrictions, As Tolerated Follow Up/Referral: Follow up with the PCP in one week Follow up with the Neurology Dr. Kiana Ross in one week Follow up with endocrinology Dr. Krishnan in one week Follow up with the Cardiology in 1-[address] Monroe Medications: Eliquis, atorvastatin, losartan, levothyroxine as prescribed. Discharge Statement: "Patient was advised to return to the ER or call 911 if any headaches, dizziness, shortness of breath, chest pain, abdominal pain, bleeding, fevers, or worsening of medical condition. Patient was counseled about treatment plan, medications, possible side effects, patientverbalized understanding. All questions were answered to the best of my ability. This discharge took greater then 30 minutes in planning, reviewing documentation, counseling the patient, and discussing with other team members." ASSESSMENT ASSESSMENT Assessment 74-year-old female with a known history of hypertension, diabetes mellitus type 2, severe anxiety disorder initially presented to the hospital with generalized weakness found to have 1. Symptomatic bradycardia secondary to severe hypothyroidism, resolved 2. Severe hypothyroidism currently on levothyroxine IV, switched to p.o. levothyroxine 3. Acute on chronic congestive heart failure exacerbation with systolic dysfunction currently compensated 4. Hypertension 5. Dyslipidemia 6. Diabetes mellitus type [address] head with the pituitary stalk, MRI brain did not show any pituitary pathology 8. Acute subcentimeter embolic CVA in why that is a frontoparietal lobes, no residual deficit -patient was stated that she takes hydroxyzine for severe anxiety at home. Date of Service: Dec 12, 2024 Billing Provider: ROBIN WADE MD Common Visit Codes: NOT BILLABLE ROBIN WADE MD Dec 12, 2024 16:38
== END 2024-12-12 21:30 | disposition home or self-care (01) | DRG 64 ==
LOC: EDBD 21:51 → ER 21:51 → OVERFLOW 12-07 05:00 → TELE-WESTW 12-07 15:51
PROVIDERS: ADMIT Hospitalist; ATTEND Hospitalist
PROC: B24BZZ4 Ultrasonography of Heart with Aorta, Transesophageal (ICD-10-PCS; principal; 2024-12-12)
DX: I63.40 Cerebral infarction due to embolism of unspecified cerebral artery (principal); I50.23 Acute on chronic systolic (congestive) heart failure; I24.89 Other forms of acute ischemic heart disease; I11.0 Hypertensive heart disease with heart failure; E03.9 Hypothyroidism, unspecified; E11.40 Type 2 diabetes mellitus with diabetic neuropathy, unspecified; E66.9 Obesity, unspecified; F41.9 Anxiety disorder, unspecified; E78.5 Hyperlipidemia, unspecified; I70.0 Atherosclerosis of aorta; G89.29 Other chronic pain; M54.50 Low back pain, unspecified; M54.2 Cervicalgia; I44.0 Atrioventricular block, first degree; F17.200 Nicotine dependence, unspecified, uncomplicated; R00.1 Bradycardia, unspecified; Z88.5 Allergy status to narcotic agent; Z88.0 Allergy status to penicillin; Z82.49 Family history of ischemic heart disease and other diseases of the circulatory system; Z68.38 Body mass index [BMI] 38.0-38.9, adult; Z83.3 Family history of diabetes mellitus; Z91.148 Patient's other noncompliance with medication regimen for other reason; Z90.710 Acquired absence of both cervix and uterus; Z79.899 Other long term (current) drug therapy; Z79.82 Long term (current) use of aspirin; Z79.4 Long term (current) use of insulin
CPT/HCPCS: 36415; 70460; 70545; 70547; 70551; 71045; 80048; 80061; 81001; 82962; 83036; 84436; 84439; 84443; 84480; 84481; 84484; 85025; 85610; 85730; 86850; 86900; 86901; 87081; 93005; 93306; 93312; G0378; J1815; J2250; J3490